=== PATIENT | female | born 1975 | race Caucasian/White ===

== ENCOUNTER 2016-10-04 09:23 | Inpatient (IN) | payer MEDICAID ==
[~2016-10-04] VITALS: Ht 162.6 cm; Wt 104.4 kg
[~2016-10-04 09:23] MED LIST: AMOX1TAB64 PO; DOCU-131 PO; DOXY100T PO; FLUT1BLS INH; FURO-93 PO; FURO40TA6 PO; GUAI600T31 PO; LEVO750T26 PO; METH4TAB2 PO; MULT-90 PO; POLY17PO5 PO; PRED-402 PO; PRED20TA PO; SIME80TA16 PO; SPIR25TA PO; TOBR5DRO49 OP
[2016-10-04] MEDS ORDERED: SODIUM CHLORIDE FLUSH 10ML SYR IVF ONE (10:30)
[2016-10-04] MEDS ORDERED: ONDANSETRON 2MG/ML, 2ML IVP ONE (10:30)
[2016-10-04] MEDS ORDERED: methylPREDNISolone SOD SUCC 125 MG/2 ML IVP ONE (10:30)
[2016-10-04] MEDS ORDERED: SODIUM CHLORIDE 0.9% 1,000ML IVBOLUS ONE (10:30)
[2016-10-04] MEDS ORDERED: ALBUTEROL SULFATE 2.5 MG/3 ML NPPB ONE (10:30)
[2016-10-04] MEDS ORDERED: methylPREDNISolone SOD SUCC 125 MG/2 ML ONE (10:30)
[2016-10-04] MEDS ORDERED: LORazepam 2 MG/ML, 1ML IVP ONE (10:30)
[2016-10-04] MEDS ORDERED: MORPHINE SULFATE 4 MG/ML, 1ML ONE ×2 (10:30→12:17)
[2016-10-04] MEDS ORDERED: ONDANSETRON 2MG/ML, 2ML ONE (10:31)
[2016-10-04] MEDS ORDERED: LORazepam 2 MG/ML, 1ML ONE (10:33)
[2016-10-04] MEDS: MORPHINE SULFATE 4 MG/ML, 1ML IVPush PRN ×2 (10:42→12:28)
[2016-10-04 11:20] LABS: HEMATOCRIT 39.3 % (34.6-47.8); HEMOGLOBIN 13.3 g/dL (11.7-16.4); WHITE BLOOD COUNT 7.5 x10^3/uL (3.4-10)
[2016-10-04 11:25] LABS: BLOOD UREA NITROGEN 6 mg/dL (7-18)
[2016-10-04 11:30] LABS: ASPARTATE AMINO TRANSFERASE 117 U/L (15-37)
[2016-10-04] MEDS ORDERED: SODIUM CHLORIDE 0.9%, 500ML IVBOLUS ONE (11:30)
[2016-10-04] MEDS ORDERED: ONDANSETRON 2MG/ML, 2ML IVPush PRN (13:30)
[2016-10-04] MEDS ORDERED: DOCUSATE 100 MG CAPSULE PO PRN (13:30)
[2016-10-04] MEDS ORDERED: METOCLOPRAMIDE 5 MG/ML, 2ML IVPush PRN (13:30)
[2016-10-04] MEDS ORDERED: BISACODYL 10 MG SUPP PR PRN (13:30)
[2016-10-04] MEDS ORDERED: LORazepam 1MG TABLET PO PRN ×4 (13:30)
[2016-10-04] MEDS ORDERED: ONDANSETRON ODT 4 MG PO PRN (13:30)
[2016-10-04] MEDS ORDERED: LABETALOL 5MG/ML, 20ML IVPush PRN (13:30)
[2016-10-04] MEDS ORDERED: LORazepam 2 MG/ML, 1ML IV PRN ×5 (13:30)
[2016-10-04] MEDS ORDERED: ENALAPRILAT 1.25 MG/ML, 2ML IVPush PRN (13:30)
[2016-10-04] MEDS ORDERED: LORazepam 0.5MG TABLET PO PRN (13:30)
[2016-10-04 13:53] VITALS: BP 101/64
[2016-10-04 13:54] VITALS: BP 101/64
[2016-10-04] MEDS: NICOTINE 14MG/24 HR PATCH.TD24 TD SCH (15:13)
[2016-10-04] MEDS: methylPREDNISolone SOD SUCC 125 MG/2 ML IVPush SCH ×2 (15:13→21:04)
[2016-10-04] MEDS: AZITHROMYCIN 500 MG in SODIUM CHLORIDE 0.9% 250 ML IV SCH (15:13)
[2016-10-04] MEDS: HEPARIN 5,000 UNITS/ML, 1ML SQ SCH (15:14)
[2016-10-04] MEDS ORDERED: ALBUTEROL/IPRATROPIUM 2.5MG/0.5MG, 3 ML ONE (16:15)
[2016-10-04] MEDS: SIMETHICONE 80 MG CHEW TAB PO SCH ×2 (16:17→21:03)
[2016-10-04] MEDS: THIAMINE 100 MG, MVI ADULT 10 ML, FOLIC ACID 1 MG in D5%-0.9% NACL 1,000 ML IV SCH (16:17)
[2016-10-04] MEDS: ALBUTEROL/IPRATROPIUM 2.5MG/0.5MG, 3 ML NPPB SCH ×2 (16:30→19:05)
[2016-10-04 20:05] VITALS: BP 110/76
[2016-10-05] MEDS: HEPARIN 5,000 UNITS/ML, 1ML SQ SCH ×3 (00:57→16:12)
[2016-10-05 01:46] VITALS: BP 98/62
[2016-10-05] MEDS: methylPREDNISolone SOD SUCC 125 MG/2 ML IVPush SCH ×2 (03:27→08:05)
[2016-10-05 05:42] LABS: ASPARTATE AMINO TRANSFERASE 62 U/L (15-37); BLOOD UREA NITROGEN 13 mg/dL (7-18)
[2016-10-05 05:48] LABS: HEMATOCRIT 37.9 % (34.6-47.8); HEMOGLOBIN 12.7 g/dL (11.7-16.4); WHITE BLOOD COUNT 7.5 x10^3/uL (3.4-10)
[2016-10-05 07:04] VITALS: BP 111/73
[2016-10-05] MEDS: ALBUTEROL/IPRATROPIUM 2.5MG/0.5MG, 3 ML NPPB SCH ×4 (07:45→19:40)
[2016-10-05] MEDS: MULTIVITAMIN 1 TABLET PO SCH (08:05)
[2016-10-05] MEDS: SPIRONOLACTONE 25 MG TABLET PO SCH (08:05)
[2016-10-05] MEDS: SIMETHICONE 80 MG CHEW TAB PO SCH ×4 (08:05→21:00)
[2016-10-05] MEDS: FLUTICASONE/VILANTEROL 200-25MCG/INH INH SCH (10:56)
[2016-10-05] MEDS ORDERED: POTASSIUM PHOSPHATE 22 MEQ in SODIUM CHLORIDE 0.9% 500 ML IV ONE (13:00)
[2016-10-05 14:06] VITALS: BP 114/67
[2016-10-05] MEDS: AZITHROMYCIN 500 MG in SODIUM CHLORIDE 0.9% 250 ML IV SCH (15:18)
[2016-10-05] MEDS: NICOTINE 14MG/24 HR PATCH.TD24 TD SCH (16:11)
[2016-10-05] MEDS: THIAMINE 100 MG, MVI ADULT 10 ML, FOLIC ACID 1 MG in D5%-0.9% NACL 1,000 ML IV SCH (17:07)
[2016-10-05] MEDS ORDERED: DOCUSATE 100 MG CAPSULE ONE (17:31)
[2016-10-05 18:51] VITALS: BP 115/71
[2016-10-06] MEDS: HEPARIN 5,000 UNITS/ML, 1ML SQ SCH ×2 (03:17→07:48)
[2016-10-06 03:45] VITALS: BP 129/90
[2016-10-06 05:45] LABS: ASPARTATE AMINO TRANSFERASE 42 U/L (15-37); BLOOD UREA NITROGEN 9 mg/dL (7-18)
[2016-10-06 06:41] VITALS: BP 117/73
[2016-10-06] MEDS: ALBUTEROL/IPRATROPIUM 2.5MG/0.5MG, 3 ML NPPB SCH ×3 (06:50→14:00)
[2016-10-06] MEDS: MULTIVITAMIN 1 TABLET PO SCH (07:48)
[2016-10-06] MEDS: SIMETHICONE 80 MG CHEW TAB PO SCH ×2 (07:48→12:30)
[2016-10-06] MEDS: SPIRONOLACTONE 25 MG TABLET PO SCH (07:48)
[2016-10-06] MEDS: FLUTICASONE/VILANTEROL 200-25MCG/INH INH SCH (07:48)
[2016-10-06] MEDS ORDERED: PRED10TA PO (09:51)
[2016-10-06] MEDS ORDERED: AZIT250T PO (09:51)
[2016-10-06] MEDS ORDERED: FLUT1BLS INH (09:51)
[2016-10-06] MEDS ORDERED: ALBU6.7H INH (09:51)
[2016-10-06 12:28] VITALS: BP 118/75
== END 2016-10-06 15:49 | disposition home or self-care (01) | DRG 190 ==
LOC: ED 10:22 → EDIP 12:25 → 3NW 14:22 → 4WST 19:03 → DCLOUNGE 10-06 15:30
PROVIDERS: ADMIT Internal Medicine; ATTEND Internal Medicine
DX: J44.0 Chronic obstructive pulmonary disease with (acute) lower respiratory infection (principal); E43 Unspecified severe protein-calorie malnutrition; D69.59 Other secondary thrombocytopenia; K70.30 Alcoholic cirrhosis of liver without ascites; K70.10 Alcoholic hepatitis without ascites; E87.1 Hypo-osmolality and hyponatremia; E83.39 Other disorders of phosphorus metabolism; F20.9 Schizophrenia, unspecified; E86.0 Dehydration; J44.1 Chronic obstructive pulmonary disease with (acute) exacerbation; F10.10 Alcohol abuse, uncomplicated; F32.9 Major depressive disorder, single episode, unspecified; J20.9 Acute bronchitis, unspecified; Z59.0 Homelessness; Z80.3 Family history of malignant neoplasm of breast; Z82.49 Family history of ischemic heart disease and other diseases of the circulatory system; Z83.3 Family history of diabetes mellitus; Z91.19 Patient's noncompliance with other medical treatment and regimen; Z68.39 Body mass index [BMI] 39.0-39.9, adult
CPT/HCPCS: 36415; 71010; 76700; 80053; 83036; 83605; 83690; 83735; 84100; 85025; 85610; 87040; 93005; 94640; 96361; 96374; 96375; 96376; J0456; J1644; J2405; J3411; J7042; J7620; J2060; J2930; J7030; J7040; J7050; J7512

== ENCOUNTER 2017-11-14 03:33 | Emergency (ER) | payer MEDICAID ==
[~2017-11-14] VITALS: Ht 162.6 cm; Wt 104.2 kg
[~2017-11-14 03:33] MED LIST changes: +ALBU6.7H INH; +AZIT250T PO; +PRED10TA PO
[2017-11-14] MEDS ORDERED: LORazepam 1MG TABLET PO ONE (04:00)
[2017-11-14] MEDS ORDERED: KETOROLAC 30 MG/1 ML IM ONE (04:00)
[2017-11-14] MEDS ORDERED: LORazepam 1MG TABLET ONE (04:01)
[2017-11-14] MEDS ORDERED: KETOROLAC 30 MG/1 ML ONE (04:01)
[2017-11-14 04:06] VITALS: BP 132/79
[2017-11-14 04:36] LABS: ALANINE AMINOTRANSFERASE 174 U/L (12-78); ALBUMIN 2.8 g/dL (3.4-5.0); ANION GAP 8 mmol/L (5-15); CALCIUM 8.2 mg/dL (8.5-10.1); CHLORIDE 106 mmol/L (98-107); CREATININE 0.47 mg/dL (0.55-1.02)
[2017-11-14 04:41] LABS: ALKALINE PHOSPHATASE 387 U/L (45-117); BILIRUBIN,TOTAL 2.3 mg/dL (0.2-1.0); TOTAL PROTEIN 8.4 g/dL (6.4-8.2)
[2017-11-14 04:43] LABS: BASOPHILS # (AUTO) 0.12 x10^3/uL (0-0.1); BASOPHILS % (AUTO) 1 % (0-1); EOSINOPHILS # (AUTO) 0.15 x10^3/uL (0-0.4); EOSINOPHILS % (AUTO) 2 % (1-7); LYMPHOCYTES # (AUTO) 2.47 x10^3/uL (1-3.4); LYMPHOCYTES % (AUTO) 27 % (22-44); MD NO; MEAN CORPUSCULAR HEMOGLOBIN 34.8 pg (27.0-34.8); MEAN CORPUSCULAR VOLUME 102.4 fL (80-100); MEAN PLATELET VOLUME 8.5 fL (7.4-10.4); MONOCYTES # (AUTO) 0.74 x10^3/uL (0.2-0.8); MONOCYTES % (AUTO) 8 % (2-9); NEUTROPHILS # (AUTO) 5.59 x10^3/uL (1.8-6.8); NEUTROPHILS % (AUTO) 62 % (42-75); PLATELET COUNT 116 x10^3/uL (130-400); RED BLOOD COUNT 4.17 x10^6/uL (3.82-5.3); RED CELL DISTRIBUTION WIDTH 14.6 % (9.6-15.2)
== END 2017-11-14 04:57 | disposition left against medical advice (07) ==
LOC: ED 04:51
DX: M54.5 Low back pain (principal); J45.909 Unspecified asthma, uncomplicated; F32.9 Major depressive disorder, single episode, unspecified; F20.9 Schizophrenia, unspecified; F41.1 Generalized anxiety disorder
CPT/HCPCS: 36415; 72110; 80053; 80307; 83690; 84703; 85025; 96372; 99285; J1885

== ENCOUNTER 2017-11-14 06:36 | Emergency (ER) | payer MEDICAID ==
[~2017-11-14] VITALS: Ht 177.8 cm; Wt 98.0 kg
[2017-11-14] MEDS ORDERED: ONDANSETRON ODT 4 MG ONE (07:21)
[2017-11-14] MEDS ORDERED: DIAZEPAM 5 MG TABLET ONE (07:22)
[2017-11-14] MEDS ORDERED: DIAZEPAM 5 MG TABLET PO ONE (07:30)
[2017-11-14] MEDS ORDERED: ONDANSETRON ODT 4 MG PO ONE (07:30)
[2017-11-14 08:18] LABS: MICROSCOPIC INDICATED
[2017-11-14 08:19] LABS: CULTURE INDICATED? YES; HCG UR SG 1.025 (1.003-1.030)
[2017-11-14 08:32] VITALS: BP 161/111
== END 2017-11-14 09:40 | disposition home or self-care (01) ==
LOC: ED 08:50
DX: N30.01 Acute cystitis with hematuria (principal); M54.5 Low back pain; K70.30 Alcoholic cirrhosis of liver without ascites; J44.9 Chronic obstructive pulmonary disease, unspecified; F32.9 Major depressive disorder, single episode, unspecified; F41.1 Generalized anxiety disorder; F20.9 Schizophrenia, unspecified
CPT/HCPCS: 74176; 81001; 81025; 87077; 87086; 87147; 87186; 99285; Q0162

== ENCOUNTER 2017-12-22 20:16 | Emergency (ER) | payer MEDICAID ==
[~2017-12-22] VITALS: Ht 162.6 cm; Wt 103.4 kg
[2017-12-22] MEDS ORDERED: ALBUTEROL/IPRATROPIUM 2.5MG/0.5MG, 3 ML NPPB ONE (20:30)
[2017-12-22] MEDS ORDERED: ALBUTEROL/IPRATROPIUM 2.5MG/0.5MG, 3 ML ONE ×2 (20:34→21:31)
[2017-12-22] MEDS ORDERED: KETOROLAC 30 MG/1 ML IM ONE (22:00)
[2017-12-22 23:14] VITALS: BP 85/40
== END 2017-12-22 23:31 | disposition home or self-care (01) ==
LOC: ED 22:03
DX: G89.11 Acute pain due to trauma (principal); M25.571 Pain in right ankle and joints of right foot; J44.1 Chronic obstructive pulmonary disease with (acute) exacerbation; F15.10 Other stimulant abuse, uncomplicated; F17.200 Nicotine dependence, unspecified, uncomplicated
CPT/HCPCS: 71045; 73590; 73610; 93005; 94640; 99284; J7620

== ENCOUNTER 2018-09-13 02:23 | Emergency (ER) | payer MEDICAID ==
[~2018-09-13] VITALS: Ht 162.6 cm; Wt 110.0 kg
[~2018-09-13 02:23] MED LIST changes: -ALBU6.7H INH; +ALBU6.7H8 INH
--- NOTE | 2018-09-13 02:35 | NUR ---
Pt BIB EMS from - [address]/ c/o abd pain generalized x "several days", worse yesterday am after lifting "heavy suitcase", states "flet a pop and something dropped", points to abdomen ans states "it seems to be bulging out more", last BM yesterday and normal, mild nausea, denies emesis. Tender to palpation, generalized distension noted. MD at bedside for assessment. vitals stable.
[2018-09-13] MEDS ORDERED: MORPHINE SULFATE 4 MG/ML, 1ML ONE (02:49)
[2018-09-13] MEDS ORDERED: ONDANSETRON 2MG/ML, 2ML ONE (02:49)
[2018-09-13] MEDS ORDERED: ONDANSETRON 2MG/ML, 2ML IVPush ONE (03:00)
[2018-09-13] MEDS ORDERED: MORPHINE SULFATE 4 MG/ML, 1ML IVPush PRN (03:00)
--- NOTE | 2018-09-13 03:00 | NUR ---
PIV placed, labs drawn. UA collected. Medicated for pain/nausea per MD orders, vitals stable, will monitor for effect.
[2018-09-13 03:17] LABS: ALANINE AMINOTRANSFERASE 95 U/L (12-78); ALBUMIN 2.8 g/dL (3.4-5.0); ANION GAP 7 mmol/L (5-15); CHLORIDE 108 mmol/L (98-107); CREATININE 0.44 mg/dL (0.55-1.02)
[2018-09-13 03:21] LABS: BASOPHILS # (AUTO) 0.01 x10^3/uL (0-0.1); BASOPHILS % (AUTO) 0 % (0-1); EOSINOPHILS # (AUTO) 0.16 x10^3/uL (0-0.4); EOSINOPHILS % (AUTO) 2 % (1-7); LYMPHOCYTES % (AUTO) 20 % (22-44); MD SCAN; MEAN CORPUSCULAR HGB CONC 33.4 g/dL (32.4-35.8); MEAN CORPUSCULAR VOLUME 104.7 fL (80-100); MEAN PLATELET VOLUME 7.9 fL (7.4-10.4); MONOCYTES # (AUTO) 0.47 x10^3/uL (0.2-0.8); MONOCYTES % (AUTO) 7 % (2-9); NEUTROPHILS # (AUTO) 4.72 x10^3/uL (1.8-6.8); NEUTROPHILS % (AUTO) 71 % (42-75); PLATELET COUNT 94 x10^3/uL (130-400); RED BLOOD COUNT 3.77 x10^6/uL (3.82-5.3); RED CELL DISTRIBUTION WIDTH 15.2 % (9.6-15.2)
[2018-09-13 03:22] LABS: ALKALINE PHOSPHATASE 377 U/L (45-117); BILIRUBIN,TOTAL 1.6 mg/dL (0.2-1.0); TOTAL PROTEIN 7.4 g/dL (6.4-8.2)
--- NOTE | 2018-09-13 03:30 | NUR ---
Pt resting on gurney w/ eyes closed, respirations even and unlabored, no s/sx of distress noted, vitals stable, waiting for results.
[2018-09-13] MEDS ORDERED: OMNIPAQUE 350 MG/ML, 100ML BOTTLE ONE (03:42)
[2018-09-13 04:29] VITALS: BP 122/65
--- NOTE | 2018-09-13 04:30 | NUR ---
Pt ambulates w/ steady gait to BR, voids w/o difficulty, vitals stable, pain /10.
--- NOTE | 2018-09-13 05:40 | NUR ---
Pt stable for discharge home. Abd binder placed, return demonstrates effective application, exitcare education provided. Verbalizes understanding. vitals stable. ambulates w/ steady gait to discharge desk with suitcase.
[2018-09-13 05:51] LABS: CULTURE INDICATED? YES; MICROSCOPIC INDICATED
== END 2018-09-13 05:53 | disposition home or self-care (01) ==
LOC: ED 05:48
DX: K42.9 Umbilical hernia without obstruction or gangrene (principal); F17.200 Nicotine dependence, unspecified, uncomplicated; J44.9 Chronic obstructive pulmonary disease, unspecified; Z86.19 Personal history of other infectious and parasitic diseases
CPT/HCPCS: 36415; 74177; 80053; 81001; 83605; 83690; 84703; 85025; 87077; 87086; 87186; 96374; 96375; 99284; J2270; J2405; Q9967

== ENCOUNTER 2018-09-24 22:02 | Emergency (ER) | payer MEDICAID ==
[~2018-09-24] VITALS: Ht 162.6 cm; Wt 106.7 kg
[2018-09-25 00:24] VITALS: BP 138/78
== END 2018-09-25 00:27 | disposition home or self-care (01) ==
LOC: ED 22:59
DX: F10.229 Alcohol dependence with intoxication, unspecified (principal); K42.9 Umbilical hernia without obstruction or gangrene; J44.9 Chronic obstructive pulmonary disease, unspecified; F20.9 Schizophrenia, unspecified; F32.9 Major depressive disorder, single episode, unspecified
CPT/HCPCS: 36415; 80053; 80307; 81001; 83690; 84703; 85025; 87077; 87086; 87186; 99283

== ENCOUNTER 2019-01-08 17:02 | Inpatient (IN) | payer MEDICAID ==
[~2019-01-08] VITALS: Ht 162.6 cm; Wt 101.2 kg
--- NOTE | 2019-01-08 17:23 | NUR ---
PT HERE TODAY FOR COUGH, DIZZINESS, N/V. 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 STATES SHE IS TRYING TO QUIT ALCOHOL. STATES SHE HAD "ONLY ONE BEER TODAY." PT RESTING ON [facility]. NADN. SALINAS.
--- NOTE | 2019-01-08 18:05 | NUR ---
PIV STARTED PER MD ORDER. BLOOD DRAWN.
[2019-01-08] MEDS ORDERED: methylPREDNISolone SOD SUCC 125 MG/2 ML ONE (18:12)
--- NOTE | 2019-01-08 18:18 | NUR ---
PT MEDICATED PER EMAR. RESTING ON GURNEY. VSS. RADIOLOGY JUST FINISHED AT BEDSIDE.
[2019-01-08] MEDS ORDERED: ALBUTEROL SULFATE 2.5 MG/3 ML ONE (18:23)
[2019-01-08] MEDS ORDERED: ALBUTEROL/IPRATROPIUM 2.5MG/0.5MG, 3 ML ONE (18:23)
[2019-01-08 18:27] LABS: ALBUMIN 2.8 g/dL (3.4-5.0); ANION GAP 7 mmol/L (5-15); CALCIUM 7.9 mg/dL (8.5-10.1); CHLORIDE 96 mmol/L (98-107); CREATININE 0.47 mg/dL (0.55-1.02)
[2019-01-08] MEDS ORDERED: ALBUTEROL/IPRATROPIUM 2.5MG/0.5MG, 3 ML NEB ONE (18:30)
[2019-01-08] MEDS ORDERED: SODIUM CHLORIDE FLUSH 10ML SYR IVF ONE (18:30)
[2019-01-08] MEDS ORDERED: SODIUM CHLORIDE 0.9% 1,000ML IVBOLUS ONE (18:30)
[2019-01-08] MEDS ORDERED: methylPREDNISolone SOD SUCC 125 MG/2 ML IV ONE (18:30)
[2019-01-08] MEDS ORDERED: ALBUTEROL SULFATE 2.5MG/0.5ML NPPB ONE (18:30)
--- NOTE | 2019-01-08 18:36 | NUR ---
RT AT BEDSIDE.
[2019-01-08 18:40] LABS: RAPID INFLUENZA A POSITIVE (Negative); RAPID INFLUENZA B Negative (Negative)
--- NOTE | 2019-01-08 18:50 | NUR ---
REPORT GIVEN TO TALYA CARIAS.
[2019-01-08 18:53] LABS: BASOPHILS # (AUTO) 0.02 x10^3/uL (0-0.1); BASOPHILS % (AUTO) 0 % (0-1); EOSINOPHILS # (AUTO) 0.01 x10^3/uL (0-0.4); EOSINOPHILS % (AUTO) 0 % (1-7); LYMPHOCYTES # (AUTO) 0.64 x10^3/uL (1-3.4); LYMPHOCYTES % (AUTO) 13 % (22-44); MD SCAN; MEAN CORPUSCULAR HEMOGLOBIN 35.4 pg (27.0-34.8); MEAN CORPUSCULAR HGB CONC 34.3 g/dL (32.4-35.8); MEAN CORPUSCULAR VOLUME 103.2 fL (80-100); MEAN PLATELET VOLUME 8.5 fL (7.4-10.4); MONOCYTES # (AUTO) 0.59 x10^3/uL (0.2-0.8); MONOCYTES % (AUTO) 12 % (2-9); NEUTROPHILS # (AUTO) 3.75 x10^3/uL (1.8-6.8); NEUTROPHILS % (AUTO) 75 % (42-75); PLATELET COUNT 51 x10^3/uL (130-400); RED BLOOD COUNT 3.81 x10^6/uL (3.82-5.3); RED CELL DISTRIBUTION WIDTH 15.3 % (9.6-15.2)
[2019-01-08] MEDS ORDERED: KETOROLAC 30 MG/1 ML ONE (18:54)
[2019-01-08] MEDS ORDERED: ACETAMINOPHEN 325 MG TABLET ONE (18:55)
[2019-01-08] MEDS ORDERED: KETOROLAC 30 MG/1 ML IVPush ONE (19:00)
[2019-01-08] MEDS ORDERED: ACETAMINOPHEN 325 MG TABLET PO ONE (19:00)
[2019-01-08] MEDS ORDERED: CALCIUM CARBONATE 500 MG TABLET PO SCH (19:30)
[2019-01-08] MEDS ORDERED: POTASSIUM CHLORIDE 20 MEQ TAB.ER.PRT PO ONE (19:30)
[2019-01-08] MEDS ORDERED: POTASSIUM CHLORIDE 20 MEQ TAB.ER.PRT ONE (19:44)
--- NOTE | 2019-01-08 19:55 | NUR ---
MEDS PER APR. VSS. PT TO BE ADMITTED, DROPLET PRECS FOR FLU A IN PLACE. RESTING IN BED, CALL COLES IN REACH .
--- NOTE | 2019-01-08 20:15 | NUR ---
report to Anastacia BABIN room 340
[2019-01-08] MEDS ORDERED: ACETAMINOPHEN 325 MG TABLET PO PRN (22:00)
[2019-01-08] MEDS ORDERED: LORazepam 0.5MG TABLET PO PRN (22:00)
[2019-01-08] MEDS ORDERED: LABETALOL 5MG/ML, 20ML IV PRN (22:00)
[2019-01-08] MEDS ORDERED: DOCUSATE 100 MG CAPSULE PO PRN (22:00)
[2019-01-08] MEDS ORDERED: ALUMINUM/MAG/SIMETHICONE 30 ML UDC PO PRN (22:00)
[2019-01-08] MEDS ORDERED: LORazepam 1MG TABLET PO PRN ×4 (22:00)
[2019-01-08] MEDS ORDERED: LIDODERM 5% PATCH TD PRN (22:00)
[2019-01-08] MEDS ORDERED: ONDANSETRON 2MG/ML, 2ML IV PRN (22:00)
[2019-01-08 22:24] VITALS: BP 115/66
[2019-01-08] MEDS ORDERED: CALCIUM CARBONATE 500 MG TABLET PO ONE (22:30)
[2019-01-08] MEDS: OSELTAMIVIR 75 MG CAPSULE PO SCH (22:58)
[2019-01-08] MEDS: BENZONATATE 100 MG CAPSULE PO SCH (22:58)
[2019-01-08] MEDS: POTASSIUM CHLORIDE 10 MEQ in SODIUM CHLORIDE 0.9% 1,000 ML IV SCH (23:00)
[2019-01-09 00:36] VITALS: BP 136/90
[2019-01-09] MEDS: ENOXAPARIN 40 MG/0.4 ML SQ SCH (04:54)
[2019-01-09] MEDS: KETOROLAC 30 MG/1 ML IV PRN ×2 (05:12→15:44)
[2019-01-09] MEDS: POTASSIUM CHLORIDE 10 MEQ in SODIUM CHLORIDE 0.9% 1,000 ML IV SCH ×3 (05:20→19:20)
[2019-01-09 05:27] LABS: ANION GAP 2 mmol/L (5-15); CALCIUM 8.6 mg/dL (8.5-10.1); CHLORIDE 106 mmol/L (98-107); CREATININE 0.49 mg/dL (0.55-1.02)
[2019-01-09 05:31] LABS: MEAN CORPUSCULAR HEMOGLOBIN 35.1 pg (27.0-34.8); MEAN CORPUSCULAR HGB CONC 33.7 g/dL (32.4-35.8); RED BLOOD COUNT 4.08 x10^6/uL (3.82-5.3); RED CELL DISTRIBUTION WIDTH 15.7 % (9.6-15.2)
[2019-01-09 05:54] LABS: BASOPHILS # (AUTO) 0.01 x10^3/uL (0-0.1); BASOPHILS % (AUTO) 0 % (0-1); EOSINOPHILS # (AUTO) 0.01 x10^3/uL (0-0.4); EOSINOPHILS % (AUTO) 0 % (1-7); LYMPHOCYTES # (AUTO) 0.39 x10^3/uL (1-3.4); LYMPHOCYTES % (AUTO) 15 % (22-44); MD SCAN; MEAN PLATELET VOLUME 8.3 fL (7.4-10.4); MONOCYTES # (AUTO) 0.09 x10^3/uL (0.2-0.8); MONOCYTES % (AUTO) 3 % (2-9); NEUTROPHILS # (AUTO) 2.11 x10^3/uL (1.8-6.8); NEUTROPHILS % (AUTO) 81 % (42-75); PLATELET COUNT 54 x10^3/uL (130-400)
[2019-01-09 07:52] VITALS: BP 132/82
[2019-01-09] MEDS: FOLIC ACID 1 MG TABLET PO SCH (08:27)
[2019-01-09] MEDS: MULTIVITAMINS/MINERALS TABLET PO SCH (08:27)
[2019-01-09] MEDS: BENZONATATE 100 MG CAPSULE PO SCH ×3 (08:27→21:00)
[2019-01-09] MEDS: THIAMINE 100MG TABLET PO SCH (08:27)
[2019-01-09] MEDS: OSELTAMIVIR 75 MG CAPSULE PO SCH ×2 (08:27→21:00)
[2019-01-09] MEDS: LIDODERM REMOVE PATCH NOTE XX SCH (10:30)
[2019-01-09] MEDS: ALBUTEROL/IPRATROPIUM 2.5MG/0.5MG, 3 ML NPPB PRN (11:50)
[2019-01-09 14:05] VITALS: BP 122/79
[2019-01-09 19:41] VITALS: BP 137/82
[2019-01-09] MEDS: DIPHENHYDRAMINE 50 MG CAPSULE PO PRN (21:00)
[2019-01-10 01:10] VITALS: BP 121/72
[2019-01-10] MEDS: POTASSIUM CHLORIDE 10 MEQ in SODIUM CHLORIDE 0.9% 1,000 ML IV SCH ×2 (02:13→12:15)
[2019-01-10] MEDS: ENOXAPARIN 40 MG/0.4 ML SQ SCH (04:27)
[2019-01-10 05:58] LABS: CHLORIDE 107 mmol/L (98-107)
[2019-01-10 06:10] LABS: ALANINE AMINOTRANSFERASE 92 U/L (12-78); ALBUMIN 2.6 g/dL (3.4-5.0); ALKALINE PHOSPHATASE 316 U/L (45-117); ANION GAP 4 mmol/L (5-15); BILIRUBIN,TOTAL 2.1 mg/dL (0.2-1.0); CALCIUM 7.9 mg/dL (8.5-10.1); CREATININE 0.47 mg/dL (0.55-1.02); TOTAL PROTEIN 7.7 g/dL (6.4-8.2)
[2019-01-10 06:48] LABS: MEAN CORPUSCULAR HEMOGLOBIN 35.1 pg (27.0-34.8); MEAN CORPUSCULAR HGB CONC 33.2 g/dL (32.4-35.8); MEAN CORPUSCULAR VOLUME 105.5 fL (80-100); MEAN PLATELET VOLUME 8.1 fL (7.4-10.4); RED BLOOD COUNT 3.97 x10^6/uL (3.82-5.3); RED CELL DISTRIBUTION WIDTH 15.9 % (9.6-15.2)
[2019-01-10 06:50] LABS: BASOPHILS # (AUTO) 0.01 x10^3/uL (0-0.1); BASOPHILS % (AUTO) 0 % (0-1); EOSINOPHILS % (AUTO) 0 % (1-7); LYMPHOCYTES % (AUTO) 12 % (22-44); MD SCAN; MONOCYTES # (AUTO) 0.43 x10^3/uL (0.2-0.8); MONOCYTES % (AUTO) 7 % (2-9); NEUTROPHILS # (AUTO) 5.28 x10^3/uL (1.8-6.8); NEUTROPHILS % (AUTO) 81 % (42-75)
[2019-01-10 06:51] LABS: PLATELET COUNT 49 x10^3/uL (130-400)
[2019-01-10 07:48] VITALS: BP 141/92
[2019-01-10] MEDS: FOLIC ACID 1 MG TABLET PO SCH (08:35)
[2019-01-10] MEDS: THIAMINE 100MG TABLET PO SCH (08:35)
[2019-01-10] MEDS: OSELTAMIVIR 75 MG CAPSULE PO SCH ×2 (08:35→21:09)
[2019-01-10] MEDS: MULTIVITAMINS/MINERALS TABLET PO SCH (08:36)
[2019-01-10] MEDS: LIDODERM REMOVE PATCH NOTE XX SCH (10:30)
[2019-01-10 12:42] VITALS: BP 138/86
[2019-01-10] MEDS ORDERED: ENOXAPARIN 40 MG/0.4 ML SQ SCH (16:00)
[2019-01-10] MEDS: LACTATED RINGERS 1,000 ML IV SCH (16:44)
[2019-01-10] MEDS: ALBUTEROL/IPRATROPIUM 2.5MG/0.5MG, 3 ML NPPB PRN (17:12)
[2019-01-10 19:31] VITALS: BP 142/92
[2019-01-10] MEDS: DIPHENHYDRAMINE 50 MG CAPSULE PO PRN (21:09)
[2019-01-11] MEDS: LACTATED RINGERS 1,000 ML IV SCH ×2 (00:03→09:02)
[2019-01-11 01:06] VITALS: BP 134/90
[2019-01-11 07:24] LABS: ALANINE AMINOTRANSFERASE 87 U/L (12-78); ALBUMIN 2.4 g/dL (3.4-5.0); ANION GAP 5 mmol/L (5-15); CALCIUM 7.8 mg/dL (8.5-10.1); CHLORIDE 100 mmol/L (98-107); CREATININE 0.52 mg/dL (0.55-1.02)
[2019-01-11 07:26] LABS: ALKALINE PHOSPHATASE 272 U/L (45-117); BILIRUBIN,TOTAL 2.4 mg/dL (0.2-1.0); TOTAL PROTEIN 7.5 g/dL (6.4-8.2)
[2019-01-11 07:28] VITALS: BP 127/76
[2019-01-11 07:32] LABS: MEAN CORPUSCULAR HEMOGLOBIN 34.9 pg (27.0-34.8); MEAN CORPUSCULAR HGB CONC 33.8 g/dL (32.4-35.8); MEAN CORPUSCULAR VOLUME 103.4 fL (80-100); RED BLOOD COUNT 4.29 x10^6/uL (3.82-5.3)
[2019-01-11 07:44] LABS: BASOPHILS % (AUTO) 0 % (0-1); EOSINOPHILS # (AUTO) 0.01 x10^3/uL (0-0.4); EOSINOPHILS % (AUTO) 0 % (1-7); LYMPHOCYTES # (AUTO) 1.05 x10^3/uL (1-3.4); LYMPHOCYTES % (AUTO) 21 % (22-44); MD SCAN; MEAN PLATELET VOLUME 8.4 fL (7.4-10.4); MONOCYTES # (AUTO) 0.39 x10^3/uL (0.2-0.8); MONOCYTES % (AUTO) 8 % (2-9); NEUTROPHILS # (AUTO) 3.61 x10^3/uL (1.8-6.8); NEUTROPHILS % (AUTO) 71 % (42-75)
[2019-01-11 07:47] LABS: PLATELET COUNT 46 x10^3/uL (130-400)
[2019-01-11] MEDS ORDERED: FOLI-17 PO (07:54)
[2019-01-11] MEDS ORDERED: OSEL75CA14 PO (07:54)
[2019-01-11] MEDS ORDERED: THIA100T67 PO (07:54)
[2019-01-11] MEDS ORDERED: PRED10TA PO (07:57)
[2019-01-11] MEDS: FOLIC ACID 1 MG TABLET PO SCH (09:01)
[2019-01-11] MEDS: OSELTAMIVIR 75 MG CAPSULE PO SCH (09:01)
[2019-01-11] MEDS: THIAMINE 100MG TABLET PO SCH (09:01)
[2019-01-11] MEDS: MULTIVITAMINS/MINERALS TABLET PO SCH (09:01)
[2019-01-11] MEDS: LIDODERM REMOVE PATCH NOTE XX SCH (09:05)
[2019-01-11 15:25] VITALS: BP 144/87
== END 2019-01-11 17:37 | disposition home or self-care (01) | DRG 720 ==
LOC: ED 19:39 → EDIP 20:11 → 3N 21:45
PROVIDERS: ADMIT Internal Medicine; ATTEND Hospitalist
DX: A41.89 Other specified sepsis (principal); D69.6 Thrombocytopenia, unspecified; E83.51 Hypocalcemia; E87.1 Hypo-osmolality and hyponatremia; F20.9 Schizophrenia, unspecified; K70.30 Alcoholic cirrhosis of liver without ascites; K70.9 Alcoholic liver disease, unspecified; B19.20 Unspecified viral hepatitis C without hepatic coma; D75.89 Other specified diseases of blood and blood-forming organs; E87.6 Hypokalemia; F15.10 Other stimulant abuse, uncomplicated; F17.210 Nicotine dependence, cigarettes, uncomplicated; F31.9 Bipolar disorder, unspecified; F41.1 Generalized anxiety disorder; J10.1 Influenza due to other identified influenza virus with other respiratory manifestations; J44.1 Chronic obstructive pulmonary disease with (acute) exacerbation; K62.5 Hemorrhage of anus and rectum; Z80.3 Family history of malignant neoplasm of breast; Z82.49 Family history of ischemic heart disease and other diseases of the circulatory system; Z83.3 Family history of diabetes mellitus; Z91.19 Patient's noncompliance with other medical treatment and regimen
CPT/HCPCS: 36415; 71045; 76700; 80048; 80053; 82040; 82607; 83735; 84100; 84443; 84702; 85025; 87040; 87400; 93005; 94640; G0378; J1650; J1885; J3480; J7611; J7620; J2930; J7030; J7120

== ENCOUNTER 2019-01-17 20:38 | Inpatient (IN) | payer MEDICAID ==
[~2019-01-17] VITALS: Ht 162.6 cm; Wt 98.4 kg
[~2019-01-17 20:38] MED LIST changes: +FOLI-17 PO; +OSEL75CA14 PO; +THIA100T67 PO
[2019-01-17] MEDS ORDERED: SODIUM CHLORIDE FLUSH 10ML SYR IVF ONE (21:00)
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
--- NOTE | 2019-01-17 21:27 | NUR ---
PT IN NAD VSS
[2019-01-17 21:43] LABS: BASOPHILS # (AUTO) 0.02 x10^3/uL (0-0.1); BASOPHILS % (AUTO) 0 % (0-1); EOSINOPHILS # (AUTO) 0.04 x10^3/uL (0-0.4); EOSINOPHILS % (AUTO) 0 % (1-7); LYMPHOCYTES # (AUTO) 1.13 x10^3/uL (1-3.4); LYMPHOCYTES % (AUTO) 14 % (22-44); MD NO; MEAN CORPUSCULAR HEMOGLOBIN 34.9 pg (27.0-34.8); MEAN CORPUSCULAR HGB CONC 33.2 g/dL (32.4-35.8); MEAN CORPUSCULAR VOLUME 105.2 fL (80-100); MEAN PLATELET VOLUME 8.2 fL (7.4-10.4); MONOCYTES # (AUTO) 0.62 x10^3/uL (0.2-0.8); MONOCYTES % (AUTO) 8 % (2-9); NEUTROPHILS % (AUTO) 78 % (42-75); PLATELET COUNT 115 x10^3/uL (130-400); RED BLOOD COUNT 3.56 x10^6/uL (3.82-5.3); RED CELL DISTRIBUTION WIDTH 15.6 % (9.6-15.2)
[2019-01-17 21:49] LABS: ALANINE AMINOTRANSFERASE 96 U/L (12-78); ALBUMIN 2.4 g/dL (3.4-5.0); CALCIUM 7.8 mg/dL (8.5-10.1); CREATININE 0.46 mg/dL (0.55-1.02)
[2019-01-17 21:51] LABS: ALKALINE PHOSPHATASE 278 U/L (45-117); BILIRUBIN,TOTAL 3.4 mg/dL (0.2-1.0); TOTAL PROTEIN 7.6 g/dL (6.4-8.2)
[2019-01-17 21:57] LABS: ANION GAP 5 mmol/L (5-15); CHLORIDE 104 mmol/L (98-107)
[2019-01-17 22:04] LABS: INTERNATIONAL NORMALIZED RATIO 1.25 (0.93-1.1)
[2019-01-17 22:33] LABS: AMPHETAMINE SCREEN, URINE Negative (Negative); BARBITURATE SCREEN, URINE Negative (Negative); BENZODIAZEPINE SCREEN, URINE Negative (Negative); CANNABINOID SCREEN, URINE Negative (Negative); COCAINE SCREEN, URINE Negative (Negative); METHADONE SCREEN, URINE Negative (Negative); OPIATE SCREEN, URINE Negative (Negative)
[2019-01-17] MEDS ORDERED: PANTOPRAZOLE 40 MG IV ONE (22:47)
[2019-01-17] MEDS ORDERED: PIPERACILLIN/TAZO/PMX 3.375GM 50 ML ONE (22:47)
[2019-01-17] MEDS ORDERED: CIPROFLOXACIN/PMX 400MG/200ML 200 ML ONE (22:47)
[2019-01-17] MEDS ORDERED: CIPROFLOXACIN/PMX 400MG/200ML 200 ML IV ONE (23:00)
[2019-01-17] MEDS ORDERED: PIPERACILLIN/TAZO/PMX 3.375GM 50 ML IV ONE (23:00)
[2019-01-17] MEDS ORDERED: PANTOPRAZOLE 40 MG IV IVPush ONE (23:00)
[2019-01-17] MEDS ORDERED: SODIUM CHLORIDE 0.9% 1,000 ML IV ONE (23:30)
--- NOTE | 2019-01-17 23:34 | NUR ---
PT TO CT AWAITING ADMIT
[2019-01-17] MEDS ORDERED: OMNIPAQUE 350 MG/ML, 100ML BOTTLE ONE (23:38)
--- NOTE | 2019-01-17 23:43 | NUR ---
REPORT TO XIOMARA PT TO FLOOR WITH TECH
[2019-01-18] MEDS ORDERED: morphine SULFATE 10 MG/ML, 1ML IVPush PRN
[2019-01-18] MEDS ORDERED: PROMETHAZINE 25 MG/ML, 1ML IM PRN
[2019-01-18] MEDS ORDERED: ONDANSETRON 2MG/ML, 2ML IVPush PRN
[2019-01-18] MEDS: methylPREDNISolone SOD SUCC 125 MG/2 ML IVPush SCH ×4 (00:33→17:27)
[2019-01-18 00:36] VITALS: BP 115/72
[2019-01-18] MEDS: POTASSIUM CHLORIDE 20 MEQ, MAGNESIUM SULFATE 2 GM, THIAMINE 200 MG, MVI ADULT 10 ML, FO... IV SCH (01:12)
[2019-01-18 05:06] LABS: BASOPHILS # (AUTO) 0.01 x10^3/uL (0-0.1); BASOPHILS % (AUTO) 0 % (0-1); EOSINOPHILS # (AUTO) 0.01 x10^3/uL (0-0.4); EOSINOPHILS % (AUTO) 0 % (1-7); LYMPHOCYTES # (AUTO) 0.64 x10^3/uL (1-3.4); LYMPHOCYTES % (AUTO) 8 % (22-44); MD NO; MEAN CORPUSCULAR HEMOGLOBIN 34.4 pg (27.0-34.8); MEAN CORPUSCULAR HGB CONC 33.3 g/dL (32.4-35.8); MEAN CORPUSCULAR VOLUME 103.4 fL (80-100); MEAN PLATELET VOLUME 8.1 fL (7.4-10.4); MONOCYTES % (AUTO) 1 % (2-9); NEUTROPHILS # (AUTO) 7.59 x10^3/uL (1.8-6.8); NEUTROPHILS % (AUTO) 91 % (42-75); PLATELET COUNT 107 x10^3/uL (130-400); RED BLOOD COUNT 3.62 x10^6/uL (3.82-5.3); RED CELL DISTRIBUTION WIDTH 15.5 % (9.6-15.2)
[2019-01-18 05:11] LABS: ALANINE AMINOTRANSFERASE 89 U/L (12-78); ALBUMIN 2.5 g/dL (3.4-5.0); ANION GAP 5 mmol/L (5-15); CALCIUM 7.9 mg/dL (8.5-10.1); CHLORIDE 109 mmol/L (98-107); CREATININE 0.47 mg/dL (0.55-1.02)
[2019-01-18 05:14] LABS: ALKALINE PHOSPHATASE 264 U/L (45-117); BILIRUBIN,TOTAL 3.6 mg/dL (0.2-1.0); TOTAL PROTEIN 7.5 g/dL (6.4-8.2)
[2019-01-18] MEDS ORDERED: PANTOPRAZOLE 40 MG IV IVPush SCH (06:00)
[2019-01-18 06:12] VITALS: BP 114/78
[2019-01-18] MEDS ORDERED: CEFTRIAXONE PMX 2GM/50ML 50 ML IV SCH (07:00)
[2019-01-18] MEDS ORDERED: METRONIDAZOLE PMX 500MG/100ML 100 ML IV SCH (07:00)
[2019-01-18] MEDS: DOXYCYCLINE 100MG TABLET PO SCH ×2 (10:24→21:09)
[2019-01-18 12:55] VITALS: BP 112/66
[2019-01-18] MEDS: OMEPRAZOLE 20 MG CAPSULE.DR PO SCH (17:22)
[2019-01-18] MEDS: FUROSEMIDE 20 MG TABLET PO SCH (17:22)
[2019-01-18] MEDS: SPIRONOLACTONE 25 MG TABLET PO SCH (17:33)
[2019-01-18] MEDS: METRONIDAZOLE PMX 500MG/100ML 100 ML IV SCH (17:34)
[2019-01-18 19:33] VITALS: BP 99/69
[2019-01-18] MEDS ORDERED: DOXYCYCLINE 100MG TABLET PO SCH (21:00)
[2019-01-19] MEDS: methylPREDNISolone SOD SUCC 125 MG/2 ML IVPush SCH ×4 (00:06→20:50)
[2019-01-19] MEDS: POTASSIUM CHLORIDE 20 MEQ, MAGNESIUM SULFATE 2 GM, THIAMINE 200 MG, MVI ADULT 10 ML, FO... IV SCH (00:06)
[2019-01-19 01:24] VITALS: BP 97/59
[2019-01-19] MEDS: ALBUTEROL SULFATE 2.5 MG/3 ML NPPB PRN ×2 (01:44→19:01)
[2019-01-19] MEDS: METRONIDAZOLE PMX 500MG/100ML 100 ML IV SCH ×3 (02:25→18:38)
[2019-01-19] MEDS: OMEPRAZOLE 20 MG CAPSULE.DR PO SCH ×2 (05:58→16:18)
[2019-01-19 06:53] VITALS: BP 113/77
[2019-01-19] MEDS: FUROSEMIDE 20 MG TABLET PO SCH (09:39)
[2019-01-19] MEDS: DOXYCYCLINE 100MG TABLET PO SCH ×2 (09:39→20:50)
[2019-01-19] MEDS: CEFTRIAXONE PMX 2GM/50ML 50 ML IV SCH (09:39)
[2019-01-19] MEDS: LACTULOSE 20 GM/30 ML UDC PO SCH ×3 (09:39→20:53)
[2019-01-19] MEDS: SPIRONOLACTONE 25 MG TABLET PO SCH (09:40)
[2019-01-19 09:41] LABS: MEAN CORPUSCULAR HEMOGLOBIN 34.7 pg (27.0-34.8); MEAN CORPUSCULAR HGB CONC 33.2 g/dL (32.4-35.8); MEAN CORPUSCULAR VOLUME 104.6 fL (80-100); MEAN PLATELET VOLUME 8.5 fL (7.4-10.4); PLATELET COUNT 113 x10^3/uL (130-400); RED BLOOD COUNT 3.21 x10^6/uL (3.82-5.3); RED CELL DISTRIBUTION WIDTH 15.6 % (9.6-15.2)
[2019-01-19] MEDS: PANTOPRAZOLE 40 MG IV IVPush SCH ×2 (09:46→20:50)
[2019-01-19 09:47] LABS: ALANINE AMINOTRANSFERASE 70 U/L (12-78); ALBUMIN 2.2 g/dL (3.4-5.0); ANION GAP 6 mmol/L (5-15); CALCIUM 7.6 mg/dL (8.5-10.1); CHLORIDE 113 mmol/L (98-107); CREATININE 0.49 mg/dL (0.55-1.02)
[2019-01-19 10:00] LABS: ALKALINE PHOSPHATASE 211 U/L (45-117); TOTAL PROTEIN 6.8 g/dL (6.4-8.2)
[2019-01-19 10:20] LABS: BASOPHILS % (AUTO) 0 % (0-1); EOSINOPHILS % (AUTO) 0 % (1-7); LYMPHOCYTES # (AUTO) 0.44 x10^3/uL (1-3.4); LYMPHOCYTES % (AUTO) 4 % (22-44); MD SCAN; MONOCYTES # (AUTO) 0.03 x10^3/uL (0.2-0.8); MONOCYTES % (AUTO) 0 % (2-9); NEUTROPHILS # (AUTO) 10.41 x10^3/uL (1.8-6.8); NEUTROPHILS % (AUTO) 96 % (42-75)
[2019-01-19 13:38] VITALS: BP 112/71
[2019-01-19 18:32] VITALS: BP 109/69
[2019-01-19] MEDS ORDERED: DIPHENHYDRAMINE 25 MG CAPSULE PO ONE (20:30)
[2019-01-20 00:50] VITALS: BP 112/72
[2019-01-20] MEDS: methylPREDNISolone SOD SUCC 125 MG/2 ML IVPush SCH ×2 (02:03→08:30)
[2019-01-20] MEDS: METRONIDAZOLE PMX 500MG/100ML 100 ML IV SCH ×2 (02:03→09:21)
[2019-01-20] MEDS: POTASSIUM CHLORIDE 20 MEQ, MAGNESIUM SULFATE 2 GM, THIAMINE 200 MG, MVI ADULT 10 ML, FO... IV SCH (03:24)
[2019-01-20] MEDS: OMEPRAZOLE 20 MG CAPSULE.DR PO SCH (03:48)
[2019-01-20 06:09] LABS: MEAN CORPUSCULAR HEMOGLOBIN 35.2 pg (27.0-34.8); MEAN CORPUSCULAR HGB CONC 33.6 g/dL (32.4-35.8); MEAN CORPUSCULAR VOLUME 104.9 fL (80-100); RED BLOOD COUNT 3.08 x10^6/uL (3.82-5.3); RED CELL DISTRIBUTION WIDTH 15.7 % (9.6-15.2)
[2019-01-20 06:14] LABS: ANION GAP 4 mmol/L (5-15); CALCIUM 7.4 mg/dL (8.5-10.1); CHLORIDE 109 mmol/L (98-107)
[2019-01-20 06:17] LABS: CREATININE 0.44 mg/dL (0.55-1.02)
[2019-01-20 06:59] LABS: BASOPHILS % (AUTO) 0 % (0-1); EOSINOPHILS % (AUTO) 0 % (1-7); LYMPHOCYTES # (AUTO) 0.46 x10^3/uL (1-3.4); LYMPHOCYTES % (AUTO) 6 % (22-44); MD SCAN; MONOCYTES # (AUTO) 0.07 x10^3/uL (0.2-0.8); MONOCYTES % (AUTO) 1 % (2-9); NEUTROPHILS # (AUTO) 7.08 x10^3/uL (1.8-6.8); NEUTROPHILS % (AUTO) 93 % (42-75); PLATELET COUNT 83 x10^3/uL (130-400)
[2019-01-20 08:00] VITALS: BP 108/76
[2019-01-20 08:27] LABS: HCG UR SG 1.022 (1.003-1.030)
[2019-01-20] MEDS: PANTOPRAZOLE 40 MG IV IVPush SCH (08:30)
[2019-01-20] MEDS ORDERED: POTASSIUM CHLORIDE 20 MEQ TAB.ER.PRT PO ONE ×2 (08:30→11:30)
[2019-01-20] MEDS: CEFTRIAXONE PMX 2GM/50ML 50 ML IV SCH (09:00)
[2019-01-20] MEDS: SPIRONOLACTONE 25 MG TABLET PO SCH (09:00)
[2019-01-20] MEDS ORDERED: FUROSEMIDE 40 MG TABLET PO SCH (09:00)
[2019-01-20] MEDS: DOXYCYCLINE 100MG TABLET PO SCH (09:00)
[2019-01-20] MEDS: LACTULOSE 20 GM/30 ML UDC PO SCH (09:00)
== END 2019-01-20 11:42 | disposition left against medical advice (07) | DRG 280 ==
LOC: ED 22:39 → EDIP 23:05 → 3N 01-18 00:13
PROVIDERS: ADMIT Family Medicine; ATTEND Hospitalist
DX: K70.31 Alcoholic cirrhosis of liver with ascites (principal); K70.11 Alcoholic hepatitis with ascites; J96.01 Acute respiratory failure with hypoxia; K65.2 Spontaneous bacterial peritonitis; J18.9 Pneumonia, unspecified organism; K92.0 Hematemesis; J44.0 Chronic obstructive pulmonary disease with (acute) lower respiratory infection; F20.9 Schizophrenia, unspecified; K42.0 Umbilical hernia with obstruction, without gangrene; J44.1 Chronic obstructive pulmonary disease with (acute) exacerbation; B18.2 Chronic viral hepatitis C; F15.10 Other stimulant abuse, uncomplicated; B95.8 Unspecified staphylococcus as the cause of diseases classified elsewhere; F10.20 Alcohol dependence, uncomplicated; Z53.29 Procedure and treatment not carried out because of patient's decision for other reasons; E66.9 Obesity, unspecified; Z68.37 Body mass index [BMI] 37.0-37.9, adult; F41.1 Generalized anxiety disorder; Y95 Nosocomial condition; Z59.0 Homelessness; Z80.3 Family history of malignant neoplasm of breast; Z82.49 Family history of ischemic heart disease and other diseases of the circulatory system; Z83.3 Family history of diabetes mellitus; Z90.49 Acquired absence of other specified parts of digestive tract; Z72.0 Tobacco use
CPT/HCPCS: 36415; 71045; 74177; 76700; 80048; 80053; 80307; 81025; 82140; 82150; 82607; 83605; 83690; 83735; 84100; 84145; 84443; 85025; 85610; 85730; 86850; 86900; 87040; 87070; 87205; 93005; 94640; 99285; G0378; J0696; J0744; J2543; J3411; J3475; J3480; J7042; J7613; Q9967; C9113; J2270; J2930; J7030; Q0163

== ENCOUNTER 2019-01-22 17:39 | Inpatient (IN) | payer MEDICAID ==
[~2019-01-22] VITALS: Ht 162.6 cm; Wt 107.0 kg
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
--- NOTE | 2019-01-22 19:00 | NUR ---
PT C/O "I THINK I MIGHT'VE POOPED IN MY PANTS OR SOMETHING WHEN I VOMITED." CLEAN PANTS AND PERSONAL CARE SUPPLIES PROVIDED TO PT FOR HYGEINE. AWAITING LAB RESULTS.
[2019-01-22 19:18] LABS: MEAN CORPUSCULAR HEMOGLOBIN 35.6 pg (27.0-34.8); MEAN CORPUSCULAR HGB CONC 33.7 g/dL (32.4-35.8); MEAN CORPUSCULAR VOLUME 105.5 fL (80-100); MEAN PLATELET VOLUME 7.6 fL (7.4-10.4); PLATELET COUNT 118 x10^3/uL (130-400); RED BLOOD COUNT 2.81 x10^6/uL (3.82-5.3)
[2019-01-22 19:27] LABS: ALANINE AMINOTRANSFERASE 102 U/L (12-78); ALBUMIN 1.9 g/dL (3.4-5.0); ANION GAP 6 mmol/L (5-15); CHLORIDE 105 mmol/L (98-107); CREATININE 0.53 mg/dL (0.55-1.02); INTERNATIONAL NORMALIZED RATIO 1.49 (0.93-1.1); PROTHROMBIN TIME 15.4 Seconds (9.6-11.5)
[2019-01-22 19:30] LABS: ALKALINE PHOSPHATASE 197 U/L (45-117); BILIRUBIN,TOTAL 1.7 mg/dL (0.2-1.0); TOTAL PROTEIN 5.3 g/dL (6.4-8.2)
[2019-01-22] MEDS ORDERED: SODIUM CHLORIDE FLUSH 10ML SYR IVF ONE (19:30)
[2019-01-22 19:48] LABS: BASOPHILS # (AUTO) 0.02 x10^3/uL (0-0.1); BASOPHILS % (AUTO) 0 % (0-1); EOSINOPHILS # (AUTO) 0.19 x10^3/uL (0-0.4); EOSINOPHILS % (AUTO) 2 % (1-7); LYMPHOCYTES # (AUTO) 1.96 x10^3/uL (1-3.4); LYMPHOCYTES % (AUTO) 18 % (22-44); MD MORPH REVIEW ONLY; MONOCYTES % (AUTO) 7 % (2-9); NEUTROPHILS % (AUTO) 73 % (42-75); RED CELL DISTRIBUTION WIDTH 15.4 % (9.6-15.2)
[2019-01-22 19:49] LABS: <PLATELET ESTIMATE> DECREASED; <PLT MORPHOLOGY> NORMAL PLT MORPH; ANISOCYTOSIS 1+; POLYCHROMASIA 1+
[2019-01-22] MEDS ORDERED: PANTOPRAZOLE 80 MG in SODIUM CHLORIDE 0.9% 50 ML IVPB ONE (19:59)
[2019-01-22] MEDS ORDERED: PANTOPRAZOLE 80 MG in SODIUM CHLORIDE 0.9% 100 ML IV SCH (19:59)
--- NOTE | 2019-01-22 20:23 | NUR ---
2ND IV STARTED. RV'WD POC WITH PT. HOSPITALIST AT BS AT THIS TIME.
[2019-01-22] MEDS ORDERED: SODIUM CHLORIDE FLUSH 10ML SYR IVF PRN (21:00)
--- NOTE | 2019-01-22 21:26 | NUR ---
LABOR DELIVERY SPECIALIST AT BS. PT UNDERSTANDS PLAN FOR ADMISSION.
[2019-01-22] MEDS ORDERED: POTASSIUM CHLORIDE 20 MEQ in LACTATED RINGERS 1,000 ML IV SCH (21:57)
[2019-01-22] MEDS ORDERED: LORazepam 2 MG/ML, 1ML IV PRN ×4 (22:00)
[2019-01-22] MEDS ORDERED: LABETALOL 5MG/ML, 20ML IVPush PRN (22:00)
[2019-01-22] MEDS ORDERED: ONDANSETRON 2MG/ML, 2ML IVPush PRN (22:00)
[2019-01-22] MEDS ORDERED: BISACODYL 10 MG SUPP PR PRN (22:00)
[2019-01-22] MEDS ORDERED: LORazepam 2 MG/ML, 1ML IVPush PRN (22:00)
[2019-01-22] MEDS ORDERED: CEFTRIAXONE PMX 2GM/50ML 50 ML IV SCH (22:30)
[2019-01-22] MEDS ORDERED: DOXYCYCLINE 100 MG in DEXTROSE 5% 250 ML IV SCH (22:30)
[2019-01-22] MEDS: OCTREOTIDE 500 MCG in SODIUM CHLORIDE 0.9% 249 ML IV SCH (23:04)
[2019-01-23 00:58] VITALS: BP 118/76
[2019-01-23 01:33] VITALS: BP 91/62
[2019-01-23] MEDS ORDERED: POTASSIUM CHLORIDE 20 MEQ TAB.ER.PRT PO ONE (06:30)
[2019-01-23] MEDS: PANTOPRAZOLE 80 MG in SODIUM CHLORIDE 0.9% 100 ML IV SCH ×2 (07:00→16:38)
[2019-01-23 08:00] VITALS: BP 98/56
[2019-01-23] MEDS: DOXYCYCLINE 100MG TABLET PO SCH ×2 (08:14→21:00)
[2019-01-23 09:40] LABS: ANION GAP 9 mmol/L (5-15); CALCIUM 7.2 mg/dL (8.5-10.1); CHLORIDE 109 mmol/L (98-107); CREATININE 0.55 mg/dL (0.55-1.02)
[2019-01-23] MEDS ORDERED: LORazepam 2 MG/ML, 1ML IVPush ONE (10:00)
[2019-01-23] MEDS ORDERED: PROPOFOL 10 MG/ML, 20ML ONE (11:09)
[2019-01-23] MEDS: AMPICILLIN/SULBACTAM 3 GM in SODIUM CHLORIDE 0.9% 100 ML IV SCH ×2 (12:30→13:29)
[2019-01-23 13:08] LABS: MEAN CORPUSCULAR HEMOGLOBIN 35.3 pg (27.0-34.8); MEAN CORPUSCULAR HGB CONC 33.5 g/dL (32.4-35.8); MEAN CORPUSCULAR VOLUME 105.4 fL (80-100); RED BLOOD COUNT 2.85 x10^6/uL (3.82-5.3); RED CELL DISTRIBUTION WIDTH 16.3 % (9.6-15.2)
[2019-01-23 13:12] LABS: BASOPHILS # (AUTO) 0.19 x10^3/uL (0-0.1); BASOPHILS % (AUTO) 2 % (0-1); EOSINOPHILS # (AUTO) 0.09 x10^3/uL (0-0.4); EOSINOPHILS % (AUTO) 1 % (1-7); LYMPHOCYTES # (AUTO) 2.41 x10^3/uL (1-3.4); LYMPHOCYTES % (AUTO) 28 % (22-44); MD SCAN; MONOCYTES # (AUTO) 0.39 x10^3/uL (0.2-0.8); MONOCYTES % (AUTO) 5 % (2-9); NEUTROPHILS % (AUTO) 65 % (42-75)
[2019-01-23] MEDS: PANTOPRAZOLE 40 MG IV IVPush SCH (13:29)
[2019-01-23] MEDS: FLUCONAZOLE 100 MG TABLET PO SCH (13:29)
[2019-01-23 14:00] VITALS: BP 90/53
[2019-01-23] MEDS: POTASSIUM CHLORIDE 20 MEQ, MAGNESIUM SULFATE 1 GM, MVI ADULT 10 ML, THIAMINE 200 MG, FO... IV SCH (15:00)
[2019-01-23] MEDS: D5%-LACTATED RINGERS 1,000 ML IV SCH (15:00)
[2019-01-23] MEDS: OCTREOTIDE 500 MCG in SODIUM CHLORIDE 0.9% 249 ML IV SCH ×2 (15:10→16:37)
[2019-01-23] MEDS: LORazepam 2 MG/ML, 1ML IV PRN ×2 (16:58→22:58)
[2019-01-23] MEDS ORDERED: LORazepam 2 MG/ML, 1ML IVPush PRN (17:00)
[2019-01-23 19:47] VITALS: BP 110/70
[2019-01-23] MEDS: AMOXICILLIN/CLAV 875-125MG TABLET PO SCH (21:00)
[2019-01-24] MEDS: PANTOPRAZOLE 40 MG IV IVPush SCH ×3 (00:19→23:37)
[2019-01-24] MEDS: D5%-LACTATED RINGERS 1,000 ML IV SCH ×3 (01:00→21:00)
[2019-01-24] MEDS: LIDODERM 5% PATCH TD PRN ×2 (01:09→12:18)
[2019-01-24 01:43] VITALS: BP 104/66
[2019-01-24 05:12] LABS: MEAN CORPUSCULAR HEMOGLOBIN 35.8 pg (27.0-34.8); MEAN CORPUSCULAR HGB CONC 33.3 g/dL (32.4-35.8); MEAN CORPUSCULAR VOLUME 107.3 fL (80-100); RED BLOOD COUNT 2.49 x10^6/uL (3.82-5.3); RED CELL DISTRIBUTION WIDTH 16.9 % (9.6-15.2)
[2019-01-24 05:18] LABS: ALANINE AMINOTRANSFERASE 114 U/L (12-78); ALBUMIN 1.9 g/dL (3.4-5.0); ANION GAP 5 mmol/L (5-15); CALCIUM 7.2 mg/dL (8.5-10.1); CHLORIDE 110 mmol/L (98-107); CREATININE 0.58 mg/dL (0.55-1.02)
[2019-01-24 05:20] LABS: ALKALINE PHOSPHATASE 172 U/L (45-117); BILIRUBIN,TOTAL 2.8 mg/dL (0.2-1.0); TOTAL PROTEIN 5.1 g/dL (6.4-8.2)
[2019-01-24 05:58] LABS: BASOPHILS % (AUTO) 1 % (0-1); EOSINOPHILS # (AUTO) 0.15 x10^3/uL (0-0.4); EOSINOPHILS % (AUTO) 2 % (1-7); LYMPHOCYTES # (AUTO) 1.56 x10^3/uL (1-3.4); LYMPHOCYTES % (AUTO) 22 % (22-44); MD SCAN; MEAN PLATELET VOLUME 7.9 fL (7.4-10.4); MONOCYTES # (AUTO) 0.42 x10^3/uL (0.2-0.8); MONOCYTES % (AUTO) 6 % (2-9); NEUTROPHILS # (AUTO) 5.03 x10^3/uL (1.8-6.8); NEUTROPHILS % (AUTO) 69 % (42-75); PLATELET COUNT 76 x10^3/uL (130-400)
[2019-01-24 07:18] VITALS: BP 118/72
[2019-01-24] MEDS: OCTREOTIDE 500 MCG in SODIUM CHLORIDE 0.9% 249 ML IV SCH ×2 (07:18→18:32)
[2019-01-24] MEDS: DOXYCYCLINE 100MG TABLET PO SCH ×2 (08:45→20:53)
[2019-01-24] MEDS: AMOXICILLIN/CLAV 875-125MG TABLET PO SCH ×2 (08:45→20:53)
[2019-01-24] MEDS: FLUCONAZOLE 100 MG TABLET PO SCH (08:45)
[2019-01-24] MEDS: LORazepam 2 MG/ML, 1ML IV PRN ×2 (12:18→20:53)
[2019-01-24 12:26] LABS: MICROSCOPIC INDICATED
[2019-01-24 12:36] LABS: INTERNATIONAL NORMALIZED RATIO 1.31 (0.93-1.1); PROTHROMBIN TIME 13.6 Seconds (9.6-11.5)
[2019-01-24 12:59] LABS: AMPHETAMINE SCREEN, URINE Positive (Negative); BARBITURATE SCREEN, URINE Negative (Negative); BENZODIAZEPINE SCREEN, URINE Negative (Negative); CANNABINOID SCREEN, URINE Negative (Negative); COCAINE SCREEN, URINE Negative (Negative); METHADONE SCREEN, URINE Negative (Negative); OPIATE SCREEN, URINE Negative (Negative)
[2019-01-24 13:22] VITALS: BP 113/53
[2019-01-24 19:43] VITALS: BP 91/55
[2019-01-24] MEDS: DIPHENHYDRAMINE 25 MG CAPSULE PO PRN (23:37)
[2019-01-25 01:29] VITALS: BP 95/55
[2019-01-25] MEDS: POTASSIUM CHLORIDE 20 MEQ, MAGNESIUM SULFATE 1 GM, MVI ADULT 10 ML, THIAMINE 200 MG, FO... IV SCH ×2 (02:45→22:00)
[2019-01-25 06:14] LABS: ALANINE AMINOTRANSFERASE 107 U/L (12-78); ALBUMIN 1.7 g/dL (3.4-5.0); ANION GAP 4 mmol/L (5-15); CALCIUM 6.8 mg/dL (8.5-10.1); CHLORIDE 108 mmol/L (98-107)
[2019-01-25 06:16] LABS: ALKALINE PHOSPHATASE 216 U/L (45-117); BILIRUBIN,TOTAL 1.3 mg/dL (0.2-1.0); TOTAL PROTEIN 4.9 g/dL (6.4-8.2)
[2019-01-25 06:25] LABS: MEAN CORPUSCULAR HEMOGLOBIN 35.2 pg (27.0-34.8); MEAN CORPUSCULAR HGB CONC 32.8 g/dL (32.4-35.8); MEAN CORPUSCULAR VOLUME 107.1 fL (80-100); RED BLOOD COUNT 2.35 x10^6/uL (3.82-5.3); RED CELL DISTRIBUTION WIDTH 17.3 % (9.6-15.2)
[2019-01-25 06:29] LABS: MEAN PLATELET VOLUME 8.2 fL (7.4-10.4); PLATELET COUNT 82 x10^3/uL (130-400)
[2019-01-25 06:33] LABS: BASOPHILS # (AUTO) 0.01 x10^3/uL (0-0.1); BASOPHILS % (AUTO) 0 % (0-1); EOSINOPHILS # (AUTO) 0.03 x10^3/uL (0-0.4); EOSINOPHILS % (AUTO) 0 % (1-7); LYMPHOCYTES # (AUTO) 1.71 x10^3/uL (1-3.4); LYMPHOCYTES % (AUTO) 21 % (22-44); MD SCAN; MONOCYTES # (AUTO) 0.42 x10^3/uL (0.2-0.8); MONOCYTES % (AUTO) 5 % (2-9); NEUTROPHILS # (AUTO) 5.84 x10^3/uL (1.8-6.8); NEUTROPHILS % (AUTO) 73 % (42-75)
[2019-01-25] MEDS: D5%-LACTATED RINGERS 1,000 ML IV SCH ×2 (07:00→17:00)
[2019-01-25] MEDS: AMOXICILLIN/CLAV 875-125MG TABLET PO SCH (08:51)
[2019-01-25] MEDS: DOXYCYCLINE 100MG TABLET PO SCH ×2 (08:51→20:45)
[2019-01-25] MEDS: FLUCONAZOLE 100 MG TABLET PO SCH (08:52)
[2019-01-25 09:05] VITALS: BP 94/61
[2019-01-25] MEDS: OCTREOTIDE 500 MCG in SODIUM CHLORIDE 0.9% 249 ML IV SCH ×2 (09:49→19:45)
[2019-01-25] MEDS: PANTOPRAZOLE 40 MG IV IVPush SCH ×2 (12:38→23:57)
[2019-01-25 12:47] LABS: AMPHETAMINE SCREEN, URINE Positive (Negative); BARBITURATE SCREEN, URINE Negative (Negative); BENZODIAZEPINE SCREEN, URINE Negative (Negative); CANNABINOID SCREEN, URINE Negative (Negative); COCAINE SCREEN, URINE Negative (Negative); METHADONE SCREEN, URINE Negative (Negative); OPIATE SCREEN, URINE Negative (Negative)
[2019-01-25] MEDS: LIDODERM 5% PATCH TD PRN (13:16)
[2019-01-25 15:48] VITALS: BP 94/60
[2019-01-25 19:30] VITALS: BP 109/71
[2019-01-25] MEDS: DIPHENHYDRAMINE 25 MG CAPSULE PO PRN (19:45)
[2019-01-26 00:52] VITALS: BP 112/26
[2019-01-26] MEDS: D5%-LACTATED RINGERS 1,000 ML IV SCH ×2 (02:43→12:24)
[2019-01-26 05:09] LABS: MEAN CORPUSCULAR HEMOGLOBIN 35.6 pg (27.0-34.8); MEAN CORPUSCULAR HGB CONC 32.6 g/dL (32.4-35.8); MEAN CORPUSCULAR VOLUME 109.2 fL (80-100); RED BLOOD COUNT 2.37 x10^6/uL (3.82-5.3); RED CELL DISTRIBUTION WIDTH 17.1 % (9.6-15.2)
[2019-01-26 05:11] LABS: CHLORIDE 108 mmol/L (98-107)
[2019-01-26 05:22] LABS: ALANINE AMINOTRANSFERASE 94 U/L (12-78); ALBUMIN 1.8 g/dL (3.4-5.0); ALKALINE PHOSPHATASE 202 U/L (45-117); ANION GAP 4 mmol/L (5-15); BILIRUBIN,TOTAL 1.6 mg/dL (0.2-1.0); CALCIUM 6.8 mg/dL (8.5-10.1); CREATININE 0.63 mg/dL (0.55-1.02); TOTAL PROTEIN 5.1 g/dL (6.4-8.2)
[2019-01-26 05:40] LABS: MEAN PLATELET VOLUME 8.8 fL (7.4-10.4); PLATELET COUNT 73 x10^3/uL (130-400)
[2019-01-26 05:51] LABS: BASOPHILS # (AUTO) 0.02 x10^3/uL (0-0.1); BASOPHILS % (AUTO) 0 % (0-1); EOSINOPHILS # (AUTO) 0.12 x10^3/uL (0-0.4); EOSINOPHILS % (AUTO) 2 % (1-7); LYMPHOCYTES # (AUTO) 1.27 x10^3/uL (1-3.4); LYMPHOCYTES % (AUTO) 20 % (22-44); MD SCAN; MONOCYTES # (AUTO) 0.65 x10^3/uL (0.2-0.8); MONOCYTES % (AUTO) 10 % (2-9); NEUTROPHILS % (AUTO) 68 % (42-75)
[2019-01-26 08:00] VITALS: BP 105/68
[2019-01-26] MEDS: FLUCONAZOLE 100 MG TABLET PO SCH (08:59)
[2019-01-26] MEDS: DOXYCYCLINE 100MG TABLET PO SCH (08:59)
[2019-01-26] MEDS: OCTREOTIDE 500 MCG in SODIUM CHLORIDE 0.9% 249 ML IV SCH ×2 (09:14→22:10)
[2019-01-26 10:26] LABS: AMPHETAMINE SCREEN, URINE Positive (Negative); BARBITURATE SCREEN, URINE Negative (Negative); BENZODIAZEPINE SCREEN, URINE Negative (Negative); CANNABINOID SCREEN, URINE Negative (Negative); COCAINE SCREEN, URINE Negative (Negative); METHADONE SCREEN, URINE Negative (Negative); OPIATE SCREEN, URINE Negative (Negative)
[2019-01-26] MEDS: PANTOPRAZOLE 40 MG IV IVPush SCH (12:34)
[2019-01-26 12:39] VITALS: BP 95/58
[2019-01-26] MEDS: FUROSEMIDE 20 MG/2 ML IV ONE ×2 (13:00→15:55)
[2019-01-26] MEDS ORDERED: FUROSEMIDE 20 MG/2 ML IV ONE (13:30)
[2019-01-26] MEDS: LIDODERM 5% PATCH TD PRN (17:13)
[2019-01-26] MEDS: DIPHENHYDRAMINE 25 MG CAPSULE PO PRN (19:57)
[2019-01-26 20:28] VITALS: BP 99/61
[2019-01-27 03:09] VITALS: BP 112/67
[2019-01-27] MEDS ORDERED: PANTOPROZOLE 40MG TABLET PO SCH (06:00)
[2019-01-27 06:39] LABS: MEAN CORPUSCULAR HEMOGLOBIN 34.6 pg (27.0-34.8); MEAN CORPUSCULAR HGB CONC 32.5 g/dL (32.4-35.8); MEAN CORPUSCULAR VOLUME 106.5 fL (80-100); RED BLOOD COUNT 2.54 x10^6/uL (3.82-5.3); RED CELL DISTRIBUTION WIDTH 17.1 % (9.6-15.2)
[2019-01-27 06:51] LABS: ANION GAP 6 mmol/L (5-15); CALCIUM 7.4 mg/dL (8.5-10.1); CHLORIDE 108 mmol/L (98-107)
[2019-01-27 06:54] LABS: ALANINE AMINOTRANSFERASE 92 U/L (12-78); ALKALINE PHOSPHATASE 209 U/L (45-117); BILIRUBIN,TOTAL 1.5 mg/dL (0.2-1.0); CREATININE 0.49 mg/dL (0.55-1.02); TOTAL PROTEIN 5.6 g/dL (6.4-8.2)
[2019-01-27 07:05] LABS: MEAN PLATELET VOLUME 8.5 fL (7.4-10.4); PLATELET COUNT 75 x10^3/uL (130-400)
[2019-01-27 07:07] LABS: MD SCAN
[2019-01-27 07:09] LABS: BASOPHILS # (AUTO) 0.02 x10^3/uL (0-0.1); BASOPHILS % (AUTO) 0 % (0-1); EOSINOPHILS # (AUTO) 0.11 x10^3/uL (0-0.4); EOSINOPHILS % (AUTO) 2 % (1-7); LYMPHOCYTES # (AUTO) 1.53 x10^3/uL (1-3.4); LYMPHOCYTES % (AUTO) 23 % (22-44); MONOCYTES % (AUTO) 9 % (2-9); NEUTROPHILS # (AUTO) 4.35 x10^3/uL (1.8-6.8); NEUTROPHILS % (AUTO) 66 % (42-75)
[2019-01-27 07:10] VITALS: BP 114/72
[2019-01-27] MEDS: OCTREOTIDE 500 MCG in SODIUM CHLORIDE 0.9% 249 ML IV SCH (08:56)
[2019-01-27] MEDS: FLUCONAZOLE 100 MG TABLET PO SCH (08:57)
[2019-01-27 09:32] LABS: AMPHETAMINE SCREEN, URINE Negative (Negative); BARBITURATE SCREEN, URINE Negative (Negative); BENZODIAZEPINE SCREEN, URINE Negative (Negative); CANNABINOID SCREEN, URINE Negative (Negative); COCAINE SCREEN, URINE Negative (Negative); METHADONE SCREEN, URINE Negative (Negative); OPIATE SCREEN, URINE Negative (Negative)
[2019-01-27] MEDS ORDERED: PANTOPRAZOLE 40 MG IV IVPush SCH (18:00)
== END 2019-01-27 12:44 | disposition left against medical advice (07) | DRG 242 ==
LOC: ED 19:46 → EDIP 20:39 → 3N 21:46
PROVIDERS: ADMIT Internal Medicine; ATTEND Hospitalist
PROC: 0DJ08ZZ Inspection of Upper Intestinal Tract, Via Natural or Artificial Opening Endoscopic (ICD-10-PCS; principal; 2019-01-23 16:00)
DX: B37.81 Candidal esophagitis (principal); E43 Unspecified severe protein-calorie malnutrition; I85.11 Secondary esophageal varices with bleeding; J18.9 Pneumonia, unspecified organism; D68.9 Coagulation defect, unspecified; D69.59 Other secondary thrombocytopenia; D62 Acute posthemorrhagic anemia; E83.51 Hypocalcemia; K70.31 Alcoholic cirrhosis of liver with ascites; K76.6 Portal hypertension; F20.9 Schizophrenia, unspecified; F15.10 Other stimulant abuse, uncomplicated; K42.0 Umbilical hernia with obstruction, without gangrene; F41.1 Generalized anxiety disorder; B18.2 Chronic viral hepatitis C; E66.9 Obesity, unspecified; J44.9 Chronic obstructive pulmonary disease, unspecified; F17.210 Nicotine dependence, cigarettes, uncomplicated; F10.239 Alcohol dependence with withdrawal, unspecified; E87.6 Hypokalemia; K31.89 Other diseases of stomach and duodenum; J44.0 Chronic obstructive pulmonary disease with (acute) lower respiratory infection; Z53.21 Procedure and treatment not carried out due to patient leaving prior to being seen by health care provider; I86.4 Gastric varices; K22.8 Other specified diseases of esophagus; Z87.01 Personal history of pneumonia (recurrent); Z80.3 Family history of malignant neoplasm of breast; Z83.3 Family history of diabetes mellitus; Z82.49 Family history of ischemic heart disease and other diseases of the circulatory system; Z81.1 Family history of alcohol abuse and dependence; Z59.0 Homelessness; Z71.6 Tobacco abuse counseling; Z90.49 Acquired absence of other specified parts of digestive tract; Z79.899 Other long term (current) drug therapy; Z68.41 Body mass index [BMI] 40.0-44.9, adult
CPT/HCPCS: 36415; 71045; 80048; 80053; 80307; 81001; 83690; 83735; 84100; 85014; 85018; 85025; 85610; 85730; 86850; 86900; 99285; G0378; J0295; J0696; J2354; J2405; J2704; J3411; J3475; J3480; J7060; C9113; J1940; J2060; J7050; J7120; Q0163

== ENCOUNTER 2019-08-22 21:18 | Inpatient (IN) | payer MEDICAID ==
[~2019-08-22] VITALS: Ht 162.6 cm; Wt 117.9 kg
[2019-08-22] MEDS ORDERED: ALBUTEROL/IPRATROPIUM 2.5MG/0.5MG, 3 ML NPPB ONE (21:30)
--- NOTE | 2019-08-22 21:31 | NUR ---
Pt presents to ed c/o recent sob, fever, and chills since this am. Hx of chf and copd. "i should be on oxygen, but i dont." Ra sat of 83% noted by [facility]. 4L nc maintain sat above 90%. Given duoneb on the way w/ little relief to pt. Pt abdomen grossly distended and firm. Hx of ascites and multiple pericentesis. All monitoring applied. Nghia. at bedside for assessment.
[2019-08-22 21:50] LABS: BASOPHILS # (AUTO) 0.03 x10^3/uL (0-0.1); BASOPHILS % (AUTO) 1 % (0-1); EOSINOPHILS # (AUTO) 0.09 x10^3/uL (0-0.4); EOSINOPHILS % (AUTO) 2 % (1-7); LYMPHOCYTES # (AUTO) 1.22 x10^3/uL (1-3.4); LYMPHOCYTES % (AUTO) 25 % (22-44); MD NO; MEAN CORPUSCULAR HEMOGLOBIN 30.6 pg (27.0-34.8); MEAN CORPUSCULAR HGB CONC 31.8 g/dL (32.4-35.8); MEAN CORPUSCULAR VOLUME 96.1 fL (80-100); MONOCYTES % (AUTO) 14 % (2-9); NEUTROPHILS # (AUTO) 2.86 x10^3/uL (1.8-6.8); NEUTROPHILS % (AUTO) 59 % (42-75); PLATELET COUNT 159 x10^3/uL (130-400); RED BLOOD COUNT 4.02 x10^6/uL (3.82-5.3)
[2019-08-22 22:01] LABS: ALANINE AMINOTRANSFERASE 50 U/L (12-78); ALBUMIN 2.1 g/dL (3.4-5.0); ANION GAP 3 mmol/L (5-15); CHLORIDE 112 mmol/L (98-107); CREATININE 0.44 mg/dL (0.55-1.02)
--- NOTE | 2019-08-22 22:02 | NUR ---
Pt refusing breathing treatment. Will keep on mar in case pt would like later.
[2019-08-22 22:03] LABS: ALKALINE PHOSPHATASE 246 U/L (45-117); BILIRUBIN,TOTAL 1.9 mg/dL (0.2-1.0); TOTAL PROTEIN 6.2 g/dL (6.4-8.2)
--- NOTE | 2019-08-22 22:33 | NUR ---
Called us and us states they are en route to take pt for paracentesis.
[2019-08-22] MEDS ORDERED: LIDOCAINE 1%, 20ML ONE (22:42)
--- NOTE | 2019-08-22 23:14 | NUR ---
Pt still in us.
--- NOTE | 2019-08-22 23:44 | NUR ---
Pt back from us/paracentesis. 4.5 L of fluid drained off and pt states pain has decreased significantly, to a tolerable level. Wob from moderate distress to mild distress and states relief from sob. Vss. Call light within reach. Awaiting results.
[2019-08-22] MEDS ORDERED: NEOSPORIN OINT. PKT 1 PACKET ONE (23:49)
--- NOTE | 2019-08-23 00:19 | NUR ---
Pt c/o increased pain in abd of 09/24. Md notified. Awaiting further orders.
[2019-08-23] MEDS ORDERED: MORPHINE SULFATE 4 MG/ML, 1ML ONE (00:25)
[2019-08-23] MEDS ORDERED: ONDANSETRON 2MG/ML, 2ML ONE (00:25)
[2019-08-23] MEDS ORDERED: ONDANSETRON 2MG/ML, 2ML IVPush ONE (00:30)
[2019-08-23] MEDS ORDERED: MORPHINE SULFATE 4 MG/ML, 1ML IVPush PRN (00:30)
--- NOTE | 2019-08-23 00:58 | NUR ---
Pain significantly better after pain meds given. Pt sleeping comfortably on gurney. Rr even and unlabored. KESHIA. SAGRARIO.
--- NOTE | 2019-08-23 01:14 | NUR ---
Pt removed from O2 and maintain sat from 86-89, informed. Pt tbadm. Awaiting order.
[2019-08-23] MEDS ORDERED: DOCUSATE 100 MG CAPSULE PO PRN (02:00)
[2019-08-23] MEDS ORDERED: GUAIFENESIN/DM 200-20MG, 10ML UDC PO PRN (02:00)
[2019-08-23] MEDS ORDERED: SODIUM CHLORIDE FLUSH 10ML SYR IVF PRN (02:00)
[2019-08-23] MEDS ORDERED: hydrALAzine 20 MG/ML, 1ML IVPush PRN (02:00)
[2019-08-23] MEDS ORDERED: ONDANSETRON 2MG/ML, 2ML IVPush PRN (02:00)
[2019-08-23] MEDS ORDERED: OXYcodone/APAP 5/325MG TABLET PO PRN (02:00)
[2019-08-23 03:10] VITALS: BP 119/73
[2019-08-23] MEDS: ENOXAPARIN 40 MG/0.4 ML SQ SCH (03:39)
[2019-08-23] MEDS: ALBUTEROL HFA 90 MCG/SPRAY INH SCH ×4 (05:46→21:31)
[2019-08-23] MEDS ORDERED: LIDOCAINE 1%, 10ML ONE (07:49)
[2019-08-23] MEDS ORDERED: FENTANYL PF 100 MCG/2ML ONE (07:57)
[2019-08-23] MEDS ORDERED: METOCLOPRAMIDE 5 MG/ML, 2ML IVPush SCH (08:00)
[2019-08-23] MEDS: FAMOTIDINE 20 MG TABLET PO SCH ×2 (09:00→21:31)
[2019-08-23 09:03] LABS: ALANINE AMINOTRANSFERASE 50 U/L (12-78); ALBUMIN 2.1 g/dL (3.4-5.0); ANION GAP 3 mmol/L (5-15); CALCIUM 7.9 mg/dL (8.5-10.1); CHLORIDE 111 mmol/L (98-107)
[2019-08-23 09:05] LABS: ALKALINE PHOSPHATASE 223 U/L (45-117); BILIRUBIN,TOTAL 2.1 mg/dL (0.2-1.0)
[2019-08-23 09:13] VITALS: BP 115/87
[2019-08-23] MEDS ORDERED: FAMOTIDINE 40 MG TABLET ONE (09:14)
[2019-08-23] MEDS: DOXYCYCLINE 100MG CAP PO SCH ×2 (09:26→21:31)
[2019-08-23] MEDS: FUROSEMIDE 40 MG/4 ML IV SCH ×2 (09:26→17:38)
[2019-08-23] MEDS: CEFTRIAXONE PMX 1GM/50ML 50 ML IV SCH (10:19)
[2019-08-23 15:11] VITALS: BP 126/88
[2019-08-23] MEDS: morphine SULFATE 10 MG/ML, 1ML IVPush PRN (16:12)
[2019-08-23 16:16] LABS: TROPONIN I < 0.015 ng/mL (0.000-0.045)
[2019-08-23] MEDS ORDERED: OMNIPAQUE 350 MG/ML, 75ML BOTTLE ONE (17:01)
[2019-08-23 20:20] VITALS: BP 144/83
[2019-08-23 22:37] LABS: TROPONIN I < 0.015 ng/mL (0.000-0.045)
[2019-08-24 02:26] VITALS: BP 111/73
[2019-08-24] MEDS: OXYcodone IR 5MG TABLET PO PRN ×4 (02:32→17:03)
[2019-08-24] MEDS: ENOXAPARIN 40 MG/0.4 ML SQ SCH (04:46)
[2019-08-24] MEDS: ALBUTEROL HFA 90 MCG/SPRAY INH SCH ×4 (05:15→20:40)
[2019-08-24 06:16] LABS: BASOPHILS # (AUTO) 0.02 x10^3/uL (0-0.1); BASOPHILS % (AUTO) 0 % (0-1); EOSINOPHILS # (AUTO) 0.06 x10^3/uL (0-0.4); EOSINOPHILS % (AUTO) 1 % (1-7); LYMPHOCYTES # (AUTO) 1.38 x10^3/uL (1-3.4); LYMPHOCYTES % (AUTO) 23 % (22-44); MD NO; MEAN CORPUSCULAR HGB CONC 32.1 g/dL (32.4-35.8); MEAN CORPUSCULAR VOLUME 96.8 fL (80-100); MEAN PLATELET VOLUME 6.2 fL (7.4-10.4); MONOCYTES # (AUTO) 0.67 x10^3/uL (0.2-0.8); MONOCYTES % (AUTO) 11 % (2-9); NEUTROPHILS # (AUTO) 3.88 x10^3/uL (1.8-6.8); NEUTROPHILS % (AUTO) 65 % (42-75); PLATELET COUNT 132 x10^3/uL (130-400); RED BLOOD COUNT 3.86 x10^6/uL (3.82-5.3)
[2019-08-24 06:26] LABS: CHLORIDE 108 mmol/L (98-107)
[2019-08-24 06:43] LABS: ALANINE AMINOTRANSFERASE 43 U/L (12-78); ALBUMIN 1.9 g/dL (3.4-5.0); ALKALINE PHOSPHATASE 169 U/L (45-117); ANION GAP 2 mmol/L (5-15); BILIRUBIN,TOTAL 1.8 mg/dL (0.2-1.0); CALCIUM 7.2 mg/dL (8.5-10.1); CREATININE 0.46 mg/dL (0.55-1.02); TOTAL PROTEIN 5.3 g/dL (6.4-8.2)
[2019-08-24 07:42] VITALS: BP 111/75
[2019-08-24] MEDS: DOXYCYCLINE 100MG CAP PO SCH ×2 (08:17→20:39)
[2019-08-24] MEDS: FUROSEMIDE 40 MG/4 ML IV SCH ×2 (08:17→17:03)
[2019-08-24] MEDS: CEFTRIAXONE PMX 1GM/50ML 50 ML IV SCH (08:18)
[2019-08-24] MEDS: FAMOTIDINE 20 MG TABLET PO SCH ×2 (08:18→20:39)
[2019-08-24] MEDS ORDERED: SPIRONOLACTONE 25 MG TABLET PO SCH (09:00)
[2019-08-24 12:45] VITALS: BP 115/68
[2019-08-24] MEDS: LACTULOSE 20 GM/30 ML UDC PO SCH ×2 (17:02→20:39)
[2019-08-24 19:18] VITALS: BP 111/85
[2019-08-25 00:54] VITALS: BP 122/61
[2019-08-25] MEDS: ACETAMINOPHEN 325 MG TABLET PO PRN ×2 (01:13→20:05)
[2019-08-25] MEDS: ALBUTEROL HFA 90 MCG/SPRAY INH PRN (01:17)
[2019-08-25] MEDS: ALBUTEROL HFA 90 MCG/SPRAY INH SCH ×4 (05:52→22:16)
[2019-08-25] MEDS ORDERED: ALBUMIN HUMAN 25% 100 ML IV ONE (07:30)
[2019-08-25 07:37] VITALS: BP 114/71
[2019-08-25] MEDS ORDERED: LIDOCAINE 1%, 10ML ONE (07:54)
[2019-08-25] MEDS: DOXYCYCLINE 100MG CAP PO SCH ×2 (09:53→22:17)
[2019-08-25] MEDS: FAMOTIDINE 20 MG TABLET PO SCH ×2 (09:53→22:15)
[2019-08-25] MEDS: CEFTRIAXONE PMX 1GM/50ML 50 ML IV SCH (09:54)
[2019-08-25] MEDS: LACTULOSE 20 GM/30 ML UDC PO SCH ×3 (09:58→22:15)
[2019-08-25] MEDS: FUROSEMIDE 40 MG/4 ML IV SCH ×2 (11:20→18:14)
[2019-08-25] MEDS: SPIRONOLACTONE 50 MG TABLET PO SCH (11:21)
[2019-08-25] MEDS: OXYcodone IR 5MG TABLET PO PRN ×3 (11:21→23:32)
[2019-08-25 14:52] VITALS: BP 111/67
[2019-08-25] MEDS: ENOXAPARIN 30 MG/0.3 ML SQ SCH (18:14)
[2019-08-26 01:34] VITALS: BP 102/58
[2019-08-26] MEDS: ALBUTEROL HFA 90 MCG/SPRAY INH SCH ×4 (06:23→21:41)
[2019-08-26] MEDS: ENOXAPARIN 30 MG/0.3 ML SQ SCH ×2 (06:23→16:33)
[2019-08-26 06:51] LABS: CREATININE 0.34 mg/dL (0.55-1.02)
[2019-08-26 07:10] VITALS: BP 96/58
[2019-08-26 07:10] LABS: ANION GAP 4 mmol/L (5-15); CHLORIDE 107 mmol/L (98-107)
[2019-08-26] MEDS ORDERED: FAMOTIDINE 40 MG TABLET ONE (08:53)
[2019-08-26] MEDS: DOXYCYCLINE 100MG CAP PO SCH ×2 (08:56→21:41)
[2019-08-26] MEDS: FUROSEMIDE 40 MG/4 ML IV SCH ×2 (08:56→16:34)
[2019-08-26] MEDS: CEFTRIAXONE PMX 1GM/50ML 50 ML IV SCH (08:56)
[2019-08-26] MEDS: FAMOTIDINE 20 MG TABLET PO SCH (08:56)
[2019-08-26] MEDS: LACTULOSE 20 GM/30 ML UDC PO SCH ×3 (08:56→21:41)
[2019-08-26] MEDS: SPIRONOLACTONE 50 MG TABLET PO SCH (08:57)
[2019-08-26] MEDS ORDERED: POTASSIUM CHLORIDE 20 MEQ TAB.ER.PRT PO ONE (09:30)
[2019-08-26] MEDS ORDERED: methylPREDNISolone SOD SUCC 125 MG/2 ML IV SCH (09:30)
[2019-08-26] MEDS: OXYcodone IR 5MG TABLET PO PRN ×2 (11:05→17:26)
[2019-08-26 12:50] VITALS: BP 104/68
[2019-08-26 19:24] VITALS: BP 117/69
[2019-08-26] MEDS: FAMOTIDINE 10 MG TAB PO SCH ×3 (21:32→21:41)
[2019-08-27 00:19] VITALS: BP 100/62
[2019-08-27] MEDS: OXYcodone IR 5MG TABLET PO PRN ×3 (00:48→23:06)
[2019-08-27] MEDS: TEMAZEPAM 15 MG CAPSULE PO PRN ×2 (03:16→20:27)
[2019-08-27] MEDS: ALBUTEROL HFA 90 MCG/SPRAY INH PRN (03:42)
[2019-08-27] MEDS: ENOXAPARIN 30 MG/0.3 ML SQ SCH ×2 (06:21→17:01)
[2019-08-27] MEDS: ALBUTEROL HFA 90 MCG/SPRAY INH SCH ×4 (06:21→20:35)
[2019-08-27 06:27] LABS: ANION GAP 2 mmol/L (5-15); CALCIUM 8.5 mg/dL (8.5-10.1); CHLORIDE 103 mmol/L (98-107); CREATININE 0.42 mg/dL (0.55-1.02)
[2019-08-27] MEDS: FUROSEMIDE 40 MG/4 ML IV SCH ×2 (08:41→16:56)
[2019-08-27] MEDS: LACTULOSE 20 GM/30 ML UDC PO SCH ×3 (08:41→20:27)
[2019-08-27] MEDS: CEFTRIAXONE PMX 1GM/50ML 50 ML IV SCH (08:41)
[2019-08-27] MEDS: SPIRONOLACTONE 50 MG TABLET PO SCH (08:41)
[2019-08-27] MEDS: DOXYCYCLINE 100MG CAP PO SCH ×2 (08:42→20:27)
[2019-08-27] MEDS ORDERED: MAGNESIUM SULFATE PMX 2GM/50ML 50 ML IV ONE (09:00)
[2019-08-27 09:46] VITALS: BP 129/77
[2019-08-27] MEDS: FAMOTIDINE 10 MG TAB PO SCH ×2 (10:19→20:27)
[2019-08-27] MEDS ORDERED: LIDOCAINE 1%, 10ML ONE (11:49)
[2019-08-27 15:07] VITALS: BP 114/68
[2019-08-27] MEDS: POTASSIUM CHLORIDE 20 MEQ PACKET PO SCH (17:00)
[2019-08-27 18:36] VITALS: BP 119/67
[2019-08-28 00:58] VITALS: BP 96/52
[2019-08-28 05:02] LABS: ANION GAP 2 mmol/L (5-15); CALCIUM 8.2 mg/dL (8.5-10.1); CHLORIDE 104 mmol/L (98-107); CREATININE 0.47 mg/dL (0.55-1.02)
[2019-08-28] MEDS: ENOXAPARIN 30 MG/0.3 ML SQ SCH ×2 (05:54→17:56)
[2019-08-28] MEDS: ALBUTEROL HFA 90 MCG/SPRAY INH SCH ×4 (05:54→20:17)
[2019-08-28] MEDS: OXYcodone IR 5MG TABLET PO PRN ×2 (05:58→15:47)
[2019-08-28 07:02] VITALS: BP 98/61
[2019-08-28] MEDS: FUROSEMIDE 40 MG/4 ML IV SCH ×2 (09:07→15:47)
[2019-08-28] MEDS: LACTULOSE 20 GM/30 ML UDC PO SCH ×3 (09:08→20:17)
[2019-08-28] MEDS: CEFTRIAXONE PMX 1GM/50ML 50 ML IV SCH (09:08)
[2019-08-28] MEDS: FAMOTIDINE 10 MG TAB PO SCH ×2 (09:08→20:17)
[2019-08-28] MEDS: DOXYCYCLINE 100MG CAP PO SCH ×2 (09:08→20:17)
[2019-08-28] MEDS: POTASSIUM CHLORIDE 20 MEQ PACKET PO SCH ×2 (09:08→15:47)
[2019-08-28] MEDS: SPIRONOLACTONE 50 MG TABLET PO SCH (09:08)
[2019-08-28 13:01] VITALS: BP 113/70
[2019-08-28] MEDS ORDERED: LIDOCAINE 1%, 10ML ONE (14:35)
[2019-08-28] MEDS: morphine SULFATE 10 MG/ML, 1ML IVPush PRN (17:57)
[2019-08-28 19:17] VITALS: BP 111/69
[2019-08-29 00:47] VITALS: BP 99/63
[2019-08-29] MEDS: OXYcodone IR 5MG TABLET PO PRN ×4 (00:47→21:06)
[2019-08-29] MEDS: ALBUTEROL HFA 90 MCG/SPRAY INH SCH ×4 (04:48→21:06)
[2019-08-29] MEDS: morphine SULFATE 10 MG/ML, 1ML IVPush PRN ×3 (04:49→19:52)
[2019-08-29] MEDS: ENOXAPARIN 30 MG/0.3 ML SQ SCH ×2 (04:49→17:00)
[2019-08-29 04:57] LABS: ALBUMIN 1.9 g/dL (3.4-5.0); ANION GAP 0 mmol/L (5-15); CALCIUM 8.4 mg/dL (8.5-10.1); CHLORIDE 101 mmol/L (98-107); CREATININE 0.45 mg/dL (0.55-1.02)
[2019-08-29 06:22] LABS: BASOPHILS # (AUTO) 0.08 x10^3/uL (0-0.1); BASOPHILS % (AUTO) 1 % (0-1); EOSINOPHILS # (AUTO) 0.08 x10^3/uL (0-0.4); EOSINOPHILS % (AUTO) 1 % (1-7); LYMPHOCYTES # (AUTO) 1.57 x10^3/uL (1-3.4); LYMPHOCYTES % (AUTO) 20 % (22-44); MD NO; MEAN CORPUSCULAR HEMOGLOBIN 30.7 pg (27.0-34.8); MEAN CORPUSCULAR HGB CONC 31.9 g/dL (32.4-35.8); MEAN CORPUSCULAR VOLUME 96.2 fL (80-100); MEAN PLATELET VOLUME 7.1 fL (7.4-10.4); MONOCYTES # (AUTO) 0.81 x10^3/uL (0.2-0.8); MONOCYTES % (AUTO) 10 % (2-9); NEUTROPHILS # (AUTO) 5.39 x10^3/uL (1.8-6.8); NEUTROPHILS % (AUTO) 68 % (42-75); PLATELET COUNT 98 x10^3/uL (130-400); RED CELL DISTRIBUTION WIDTH 17.1 % (9.6-15.2)
[2019-08-29 07:57] VITALS: BP 117/74
[2019-08-29] MEDS: CEFTRIAXONE PMX 1GM/50ML 50 ML IV SCH (08:15)
[2019-08-29] MEDS: FUROSEMIDE 40 MG/4 ML IV SCH ×2 (08:15→17:00)
[2019-08-29] MEDS: LACTULOSE 20 GM/30 ML UDC PO SCH ×3 (08:16→21:06)
[2019-08-29] MEDS: POTASSIUM CHLORIDE 20 MEQ PACKET PO SCH ×2 (08:16→16:59)
[2019-08-29] MEDS: FAMOTIDINE 10 MG TAB PO SCH ×2 (08:16→21:06)
[2019-08-29] MEDS: DOXYCYCLINE 100MG CAP PO SCH ×2 (08:16→21:06)
[2019-08-29] MEDS: SPIRONOLACTONE 50 MG TABLET PO SCH (08:16)
[2019-08-29 10:34] LABS: INTERNATIONAL NORMALIZED RATIO 1.07 (0.93-1.1); PROTHROMBIN TIME 11.4 Seconds (9.6-11.5)
[2019-08-29 14:47] VITALS: BP 116/58
[2019-08-29] MEDS: METHOCARBAMOL 500 MG TABLET PO PRN (17:11)
[2019-08-29] MEDS: ACETAMINOPHEN 325 MG TABLET PO PRN (17:11)
[2019-08-29 21:15] VITALS: BP 92/52
[2019-08-29] MEDS: ALBUTEROL HFA 90 MCG/SPRAY INH PRN (22:30)
[2019-08-30 01:26] VITALS: BP 115/74
[2019-08-30] MEDS: morphine SULFATE 10 MG/ML, 1ML IVPush PRN ×3 (03:18→20:51)
[2019-08-30] MEDS: ENOXAPARIN 30 MG/0.3 ML SQ SCH ×3 (06:25→08:49)
[2019-08-30] MEDS: ALBUTEROL HFA 90 MCG/SPRAY INH SCH ×4 (06:25→21:44)
[2019-08-30 07:10] VITALS: BP 106/56
[2019-08-30] MEDS: CEFTRIAXONE PMX 1GM/50ML 50 ML IV SCH (07:38)
[2019-08-30] MEDS: FUROSEMIDE 40 MG/4 ML IV SCH ×2 (07:38→17:07)
[2019-08-30 08:45] LABS: AMPHETAMINE SCREEN, URINE Negative (Negative); BARBITURATE SCREEN, URINE Negative (Negative); BENZODIAZEPINE SCREEN, URINE Negative (Negative); CANNABINOID SCREEN, URINE Negative (Negative); COCAINE SCREEN, URINE Negative (Negative); METHADONE SCREEN, URINE Negative (Negative); OPIATE SCREEN, URINE Positive (Negative)
[2019-08-30] MEDS: POTASSIUM CHLORIDE 20 MEQ PACKET PO SCH ×2 (09:43→17:07)
[2019-08-30] MEDS: METHOCARBAMOL 500 MG TABLET PO PRN ×2 (09:43→19:46)
[2019-08-30] MEDS: OXYcodone IR 5MG TABLET PO PRN ×2 (09:43→17:07)
[2019-08-30] MEDS: LACTULOSE 20 GM/30 ML UDC PO SCH ×3 (09:43→20:51)
[2019-08-30] MEDS: DOXYCYCLINE 100MG CAP PO SCH ×2 (09:43→20:51)
[2019-08-30] MEDS: SPIRONOLACTONE 50 MG TABLET PO SCH (09:43)
[2019-08-30] MEDS: FAMOTIDINE 10 MG TAB PO SCH ×2 (09:43→20:51)
[2019-08-30 14:00] VITALS: BP 115/77
[2019-08-30 19:04] VITALS: BP 108/71
[2019-08-30] MEDS: TEMAZEPAM 15 MG CAPSULE PO PRN (21:44)
[2019-08-31 00:14] VITALS: BP 100/60
[2019-08-31] MEDS: FUROSEMIDE 40 MG/4 ML IV SCH (07:30)
[2019-08-31] MEDS: POTASSIUM CHLORIDE 20 MEQ PACKET PO SCH (08:00)
[2019-08-31 08:23] VITALS: BP 110/65
[2019-08-31] MEDS: DOXYCYCLINE 100MG CAP PO SCH (09:00)
[2019-08-31] MEDS: FAMOTIDINE 10 MG TAB PO SCH (09:00)
[2019-08-31] MEDS: SPIRONOLACTONE 50 MG TABLET PO SCH (09:00)
[2019-08-31] MEDS: LACTULOSE 20 GM/30 ML UDC PO SCH (09:00)
[2019-08-31] MEDS: ALBUTEROL HFA 90 MCG/SPRAY INH SCH ×2 (09:25→11:00)
[2019-08-31] MEDS: CEFTRIAXONE PMX 1GM/50ML 50 ML IV SCH (09:25)
[2019-08-31] MEDS ORDERED: NALOXONE 1 MG/ML, 2ML ONE (10:41)
[2019-08-31] MEDS ORDERED: FENTANYL PF 100 MCG/2ML ONE (10:41)
[2019-08-31] MEDS ORDERED: MIDAZOLAM 1 MG/ML, 5ML ONE (10:41)
[2019-08-31] MEDS ORDERED: FLUMAZENIL 0.1 MG/1 ML, 5ML ONE (10:41)
[2019-08-31] MEDS ORDERED: LIDOCAINE 1%, 20ML ONE (10:43)
[2019-08-31] MEDS ORDERED: MORPHINE SULFATE 4 MG/ML, 1ML ONE (12:03)
[2019-08-31 12:06] VITALS: BP 105/63
[2019-08-31] MEDS: morphine SULFATE 10 MG/ML, 1ML IVPush PRN (12:06)
[2019-08-31] MEDS: OXYcodone IR 5MG TABLET PO PRN (12:16)
[2019-08-31] MEDS ORDERED: OXYC-302 PO (12:29)
[2019-08-31] MEDS ORDERED: SPIR50TA PO (12:29)
[2019-08-31] MEDS ORDERED: LACT20SO13 PO (12:45)
[2019-08-31] MEDS ORDERED: FURO-93 PO (12:45)
== END 2019-08-31 16:11 | disposition home or self-care (01) | DRG 280 ==
LOC: ED 21:57 → EDIP 08-23 01:39 → 3N 08-23 02:48
PROVIDERS: ADMIT Internal Medicine; ATTEND Family Medicine
PROC: 0W9G3ZZ Drainage of Peritoneal Cavity, Percutaneous Approach (ICD-10-PCS; principal; 2019-08-22)
PROC: 0W993ZZ Drainage of Right Pleural Cavity, Percutaneous Approach (ICD-10-PCS; 2019-08-23)
PROC: 0W9G3ZZ Drainage of Peritoneal Cavity, Percutaneous Approach (ICD-10-PCS; 2019-08-25)
PROC: 0W9G3ZZ Drainage of Peritoneal Cavity, Percutaneous Approach (ICD-10-PCS; 2019-08-27)
PROC: 0W9G3ZZ Drainage of Peritoneal Cavity, Percutaneous Approach (ICD-10-PCS; 2019-08-28)
PROC: 0W993ZZ Drainage of Right Pleural Cavity, Percutaneous Approach (ICD-10-PCS; 2019-08-28)
PROC: 0JH63XZ Insertion of Tunneled Vascular Access Device into Chest Subcutaneous Tissue and Fascia, Percutaneous Approach (ICD-10-PCS; 2019-08-31)
PROC: 05HY33Z Insertion of Infusion Device into Upper Vein, Percutaneous Approach (ICD-10-PCS; 2019-08-31)
PROC: BB4BZZZ Ultrasonography of Pleura (ICD-10-PCS; 2019-08-31)
PROC: 0W9930Z Drainage of Right Pleural Cavity with Drainage Device, Percutaneous Approach (ICD-10-PCS; 2019-08-31)
DX: K70.31 Alcoholic cirrhosis of liver with ascites (principal); B19.20 Unspecified viral hepatitis C without hepatic coma; J18.9 Pneumonia, unspecified organism; J44.0 Chronic obstructive pulmonary disease with (acute) lower respiratory infection; J96.01 Acute respiratory failure with hypoxia; K72.90 Hepatic failure, unspecified without coma; E66.01 Morbid (severe) obesity due to excess calories; E87.8 Other disorders of electrolyte and fluid balance, not elsewhere classified; F10.20 Alcohol dependence, uncomplicated; E88.09 Other disorders of plasma-protein metabolism, not elsewhere classified; F12.19 Cannabis abuse with unspecified cannabis-induced disorder; F17.210 Nicotine dependence, cigarettes, uncomplicated; F20.9 Schizophrenia, unspecified; F41.9 Anxiety disorder, unspecified; I35.8 Other nonrheumatic aortic valve disorders; J90 Pleural effusion, not elsewhere classified; J98.11 Atelectasis; Z71.6 Tobacco abuse counseling; Z68.41 Body mass index [BMI] 40.0-44.9, adult; Z80.9 Family history of malignant neoplasm, unspecified; Z82.3 Family history of stroke; Z82.49 Family history of ischemic heart disease and other diseases of the circulatory system; Z82.5 Family history of asthma and other chronic lower respiratory diseases; Z83.3 Family history of diabetes mellitus; Z90.49 Acquired absence of other specified parts of digestive tract
CPT/HCPCS: J3490 ×4; 32550; 32555; 36415; 49083; 71045; 71250; 71275; 80048; 80053; 80069; 80307; 82042; 82140; 83615; 83690; 83735; 84100; 84484; 85025; 85610; 87070; 87205; 89051; 93005; 93306; 93970; 94664; 96374; 99156; 99157; G0378; J0696; J1650; J1940; J2250; J2405; J3010; Q9967; C1729; J2270; J2310; J2930; J3475

== ENCOUNTER 2019-11-05 09:47 | Inpatient (IN) | payer MEDICAID ==
[~2019-11-05] VITALS: Ht 162.6 cm; Wt 98.8 kg
[~2019-11-05 09:47] MED LIST changes: +LACT20SO13 PO; +OXYC-302 PO; +SPIR50TA PO
[2019-11-05] MEDS ORDERED: OXYcodone/APAP 5/325MG TABLET PO ONE (10:00)
[2019-11-05] MEDS ORDERED: HYDROmorphone 1 MG/ML, 1ML INJ IM ONE ×2 (10:00→12:00)
[2019-11-05] MEDS ORDERED: HYDROmorphone 1 MG/ML, 1ML INJ ONE ×2 (10:03→12:17)
[2019-11-05] MEDS ORDERED: OXYcodone/APAP 5/325MG TABLET ONE (10:04)
[2019-11-05 10:45] LABS: BASOPHILS # (AUTO) 0.03 x10^3/uL (0-0.1); BASOPHILS % (AUTO) 0 % (0-1); EOSINOPHILS # (AUTO) 0.09 x10^3/uL (0-0.4); EOSINOPHILS % (AUTO) 1 % (1-7); LYMPHOCYTES # (AUTO) 0.92 x10^3/uL (1-3.4); LYMPHOCYTES % (AUTO) 10 % (22-44); MD NO; MEAN CORPUSCULAR HEMOGLOBIN 29.1 pg (27.0-34.8); MEAN CORPUSCULAR HGB CONC 31.6 g/dL (32.4-35.8); MEAN CORPUSCULAR VOLUME 92.2 fL (80-100); MEAN PLATELET VOLUME 6.8 fL (7.4-10.4); MONOCYTES # (AUTO) 1.05 x10^3/uL (0.2-0.8); MONOCYTES % (AUTO) 11 % (2-9); NEUTROPHILS % (AUTO) 77 % (42-75); PLATELET COUNT 194 x10^3/uL (130-400); RED CELL DISTRIBUTION WIDTH 16.6 % (9.6-15.2)
--- NOTE | 2019-11-05 10:47 | NUR ---
PT CAME IN FOR TUNNELED CHEST DRAIN PAIN. PT IS ON HOSPICE, REPORTS THAT SHE TRIED TO FIX A HOLE WITH A JUICE BOX STRAW LAST WEEK. PT IN BED WITH CONT SPO2, BP Q 30 MIN SIDE RAILS UP X2, CALL LIGHT IN REACH. WENT OVER PLAN OF CARE FROM ORDER LIST, AGREES TO PLAN. PT IS ON 3-4L NC NEEDED. PT ON 2L AT THIS TIME. LAB IN ROOM
[2019-11-05] MEDS ORDERED: MORP4SYR4 PO (10:53)
[2019-11-05 10:55] LABS: ANION GAP 5 mmol/L (5-15); CALCIUM 7.5 mg/dL (8.5-10.1); CHLORIDE 100 mmol/L (98-107); CREATININE 0.48 mg/dL (0.55-1.02)
[2019-11-05 10:59] LABS: INTERNATIONAL NORMALIZED RATIO 1.26 (0.93-1.1)
[2019-11-05] MEDS ORDERED: OMNIPAQUE 350 MG/ML, 75ML BOTTLE ONE (11:15)
--- NOTE | 2019-11-05 12:23 | NUR ---
BREAK RN: PT MEDICATED PER EMAR. PT RESTING ON [facility] W/ CALL LIGHT IN REACH AND SIDE RAILS UPX2. KESHIA SALINAS.
[2019-11-05] MEDS ORDERED: HYDROmorphone 2 MG/ML, 1ML IVPush PRN ×2 (12:30→16:30)
[2019-11-05 13:30] VITALS: BP 110/68
[2019-11-05] MEDS ORDERED: OXYcodone/APAP 5/325MG TABLET PO PRN (14:30)
[2019-11-05] MEDS ORDERED: POTASSIUM CHLORIDE 10% 40 MEQ/30 ML UDC PO ONE (16:30)
[2019-11-05] MEDS ORDERED: LABETALOL 5MG/ML, 20ML IVPush PRN (16:30)
[2019-11-05] MEDS ORDERED: ONDANSETRON 2MG/ML, 2ML IVPush PRN (16:30)
[2019-11-05] MEDS: HEPARIN 5,000 UNITS/ML, 1ML SQ SCH (16:30)
[2019-11-05] MEDS ORDERED: ACETAMINOPHEN 325 MG TABLET PO PRN (16:30)
[2019-11-05] MEDS ORDERED: ONDANSETRON ODT 4 MG PO PRN (16:30)
[2019-11-05] MEDS: CEFTRIAXONE PMX 1GM/50ML 50 ML IV SCH (17:17)
[2019-11-05 18:20] VITALS: BP 98/63
[2019-11-05] MEDS: LORazepam 1MG TABLET PO PRN (21:20)
[2019-11-05] MEDS: OXYcodone IR 5MG TABLET PO PRN (21:20)
[2019-11-05 21:32] LABS: MICROSCOPIC INDICATED
[2019-11-06] MEDS: LORazepam 1MG TABLET PO PRN ×2 (01:45→21:03)
[2019-11-06] MEDS: OXYcodone IR 5MG TABLET PO PRN ×4 (01:45→21:02)
[2019-11-06 03:13] VITALS: BP 103/67
[2019-11-06] MEDS: HEPARIN 5,000 UNITS/ML, 1ML SQ SCH ×2 (04:30→16:30)
[2019-11-06 05:23] LABS: INTERNATIONAL NORMALIZED RATIO 1.26 (0.93-1.1)
[2019-11-06 05:24] LABS: BASOPHILS # (AUTO) 0.02 x10^3/uL (0-0.1); BASOPHILS % (AUTO) 0 % (0-1); EOSINOPHILS # (AUTO) 0.12 x10^3/uL (0-0.4); EOSINOPHILS % (AUTO) 2 % (1-7); LYMPHOCYTES # (AUTO) 0.86 x10^3/uL (1-3.4); LYMPHOCYTES % (AUTO) 13 % (22-44); MD NO; MEAN CORPUSCULAR HEMOGLOBIN 29.1 pg (27.0-34.8); MEAN CORPUSCULAR HGB CONC 32.1 g/dL (32.4-35.8); MEAN CORPUSCULAR VOLUME 90.8 fL (80-100); MEAN PLATELET VOLUME 6.6 fL (7.4-10.4); MONOCYTES # (AUTO) 0.73 x10^3/uL (0.2-0.8); MONOCYTES % (AUTO) 11 % (2-9); NEUTROPHILS # (AUTO) 5.11 x10^3/uL (1.8-6.8); NEUTROPHILS % (AUTO) 75 % (42-75); PLATELET COUNT 173 x10^3/uL (130-400); RED BLOOD COUNT 3.74 x10^6/uL (3.82-5.3); RED CELL DISTRIBUTION WIDTH 16.3 % (9.6-15.2)
[2019-11-06 05:41] LABS: ALANINE AMINOTRANSFERASE 24 U/L (12-78); ALBUMIN 1.8 g/dL (3.4-5.0); ANION GAP 3 mmol/L (5-15); CALCIUM 8.2 mg/dL (8.5-10.1); CHLORIDE 104 mmol/L (98-107); CREATININE 0.38 mg/dL (0.55-1.02)
[2019-11-06 05:46] LABS: ALKALINE PHOSPHATASE 208 U/L (45-117); BILIRUBIN,TOTAL 1.6 mg/dL (0.2-1.0); TOTAL PROTEIN 6.5 g/dL (6.4-8.2)
[2019-11-06 07:39] VITALS: BP 108/67
[2019-11-06] MEDS ORDERED: NALOXONE 1 MG/ML, 2ML ONE (08:42)
[2019-11-06] MEDS ORDERED: FENTANYL PF 100 MCG/2ML ONE (08:42)
[2019-11-06] MEDS ORDERED: FLUMAZENIL 0.1 MG/1 ML, 5ML ONE (08:42)
[2019-11-06] MEDS ORDERED: MIDAZOLAM 1 MG/ML, 5ML ONE (08:42)
[2019-11-06] MEDS ORDERED: LIDOCAINE 1%, 20ML ONE (11:12)
[2019-11-06] MEDS ORDERED: LIDOCAINE 1%, 10ML ONE (11:53)
[2019-11-06 13:17] VITALS: BP 114/77
[2019-11-06] MEDS: CEFTRIAXONE PMX 1GM/50ML 50 ML IV SCH (16:53)
[2019-11-06 19:47] VITALS: BP 112/72
[2019-11-06] MEDS ORDERED: LORazepam 0.5MG TABLET ONE (21:01)
[2019-11-07] MEDS: OXYcodone IR 5MG TABLET PO PRN ×2 (02:06→06:15)
[2019-11-07] MEDS ORDERED: LORazepam 0.5MG TABLET ONE ×2 (02:07→06:14)
[2019-11-07] MEDS: LORazepam 1MG TABLET PO PRN ×2 (02:08→06:15)
[2019-11-07 02:13] VITALS: BP 107/69
[2019-11-07] MEDS: HEPARIN 5,000 UNITS/ML, 1ML SQ SCH ×2 (04:30→16:27)
[2019-11-07 06:41] VITALS: BP 108/69
[2019-11-07] MEDS: DOXYCYCLINE 100MG TABLET PO SCH ×2 (09:11→21:42)
[2019-11-07] MEDS: ERTAPENEM 1 GM in SODIUM CHLORIDE 0.9% 50 ML IV SCH (11:44)
[2019-11-07 14:22] VITALS: BP 99/63
[2019-11-07] MEDS: OXYcodone/APAP 5/325MG TABLET PO PRN ×2 (16:27→21:42)
[2019-11-07 18:39] VITALS: BP 121/77
[2019-11-08 00:48] VITALS: BP 107/59
[2019-11-08] MEDS: HEPARIN 5,000 UNITS/ML, 1ML SQ SCH (04:18)
[2019-11-08 05:36] LABS: BASOPHILS # (AUTO) 0.03 x10^3/uL (0-0.1); BASOPHILS % (AUTO) 0 % (0-1); EOSINOPHILS # (AUTO) 0.11 x10^3/uL (0-0.4); EOSINOPHILS % (AUTO) 2 % (1-7); LYMPHOCYTES # (AUTO) 0.87 x10^3/uL (1-3.4); LYMPHOCYTES % (AUTO) 14 % (22-44); MD NO; MEAN CORPUSCULAR HEMOGLOBIN 29.3 pg (27.0-34.8); MEAN CORPUSCULAR HGB CONC 32.1 g/dL (32.4-35.8); MEAN CORPUSCULAR VOLUME 91.3 fL (80-100); MEAN PLATELET VOLUME 6.5 fL (7.4-10.4); MONOCYTES # (AUTO) 0.73 x10^3/uL (0.2-0.8); MONOCYTES % (AUTO) 11 % (2-9); NEUTROPHILS % (AUTO) 73 % (42-75); PLATELET COUNT 157 x10^3/uL (130-400); RED BLOOD COUNT 3.73 x10^6/uL (3.82-5.3); RED CELL DISTRIBUTION WIDTH 16.3 % (9.6-15.2)
[2019-11-08 05:51] LABS: ANION GAP 4 mmol/L (5-15); CALCIUM 7.9 mg/dL (8.5-10.1); CHLORIDE 106 mmol/L (98-107); CREATININE 0.36 mg/dL (0.55-1.02)
[2019-11-08 06:11] VITALS: BP 102/58
[2019-11-08] MEDS: DOXYCYCLINE 100MG TABLET PO SCH (08:48)
[2019-11-08] MEDS: OXYcodone/APAP 5/325MG TABLET PO PRN (10:05)
[2019-11-08] MEDS: ERTAPENEM 1 GM in SODIUM CHLORIDE 0.9% 50 ML IV SCH (10:47)
[2019-11-08] MEDS ORDERED: DOXY100T PO (10:52)
[2019-11-08] MEDS ORDERED: AMOX1TAB64 PO (10:56)
[2019-11-08] MEDS ORDERED: LACT1CAP11 PO (10:57)
[2019-11-08] MEDS ORDERED: FOSFOMYCIN 3 GM PACKET PO ONE (11:00)
[2019-11-08 13:30] VITALS: BP 111/67
== END 2019-11-08 14:59 | disposition hospice, home (50) | DRG 813 ==
LOC: ED 12:08 → EDIP 12:43 → 4NW 14:00
PROVIDERS: ADMIT Hospitalist; ATTEND Internal Medicine
PROC: 0W9930Z Drainage of Right Pleural Cavity with Drainage Device, Percutaneous Approach (ICD-10-PCS; principal; 2019-11-06)
PROC: 0WP933Z Removal of Infusion Device from Right Pleural Cavity, Percutaneous Approach (ICD-10-PCS; 2019-11-06)
DX: T85.698A Other mechanical complication of other specified internal prosthetic devices, implants and grafts, initial encounter (principal); N39.0 Urinary tract infection, site not specified; K76.6 Portal hypertension; K75.9 Inflammatory liver disease, unspecified; E43 Unspecified severe protein-calorie malnutrition; Z68.37 Body mass index [BMI] 37.0-37.9, adult; F17.210 Nicotine dependence, cigarettes, uncomplicated; F20.9 Schizophrenia, unspecified; Z16.12 Extended spectrum beta lactamase (ESBL) resistance; F41.1 Generalized anxiety disorder; J44.9 Chronic obstructive pulmonary disease, unspecified; J90 Pleural effusion, not elsewhere classified; Z99.81 Dependence on supplemental oxygen; Z83.3 Family history of diabetes mellitus; Z82.5 Family history of asthma and other chronic lower respiratory diseases; Z82.49 Family history of ischemic heart disease and other diseases of the circulatory system; Z80.9 Family history of malignant neoplasm, unspecified; J98.11 Atelectasis; K70.11 Alcoholic hepatitis with ascites; K70.31 Alcoholic cirrhosis of liver with ascites; Y83.9 Surgical procedure, unspecified as the cause of abnormal reaction of the patient, or of later complication, without mention of misadventure at the time of the procedure; Y92.89 Other specified places as the place of occurrence of the external cause
CPT/HCPCS: J3490 ×2; 32552; 36415; 49422; 71045; 71260; 80048; 80053; 81001; 82040; 83735; 84100; 84145; 85025; 85610; 85730; 87040; 87077; 87086; 87184; 87186; 96372; 96374; 99156; 99157; 99285; G0378; J0696; J1170; J1335; J1644; J2250; J3010; Q9967; C1729; J2310

== ENCOUNTER 2020-05-01 19:05 | Inpatient (IN) | payer MEDICAID ==
[~2020-05-01] VITALS: Ht 165.1 cm; Wt 101.5 kg
[~2020-05-01 19:05] MED LIST changes: -FOLI-17 PO; +FOLI1TAB32 PO; +LACT1CAP11 PO; +MORP4SYR4 PO; -OXYC-302 PO; +OXYC1TAB14 PO
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
--- NOTE | 2020-05-01 19:41 | NUR ---
EKG AT BS
[2020-05-01 19:54] LABS: BASOPHILS % (AUTO) 1 % (0-1); EOSINOPHILS % (AUTO) 4 % (1-7); LYMPHOCYTES % (AUTO) 19 % (22-44); MEAN CORPUSCULAR HGB CONC 32.2 g/dL (32.4-35.8); MEAN PLATELET VOLUME 7.4 fL (7.4-10.4); MONOCYTES % (AUTO) 9 % (2-9); NEUTROPHILS % (AUTO) 68 % (42-75); PLATELET COUNT 134 x10^3/uL (130-400); RED BLOOD COUNT 3.27 x10^6/uL (3.82-5.3); RED CELL DISTRIBUTION WIDTH 19.3 % (9.6-15.2)
[2020-05-01 19:55] LABS: MD NO
[2020-05-01] MEDS ORDERED: SODIUM CHLORIDE FLUSH 10ML SYR IVF ONE (20:00)
[2020-05-01 20:05] LABS: ALANINE AMINOTRANSFERASE 29 U/L (12-78); ANION GAP 4 mmol/L (5-15); CALCIUM 7.3 mg/dL (8.5-10.1); CHLORIDE 111 mmol/L (98-107)
[2020-05-01 20:08] LABS: ALKALINE PHOSPHATASE 253 U/L (45-117); BILIRUBIN,TOTAL 0.8 mg/dL (0.2-1.0); TOTAL PROTEIN 6.5 g/dL (6.4-8.2)
[2020-05-01] MEDS ORDERED: CEFTRIAXONE PMX 1GM/50ML 50 ML IV ONE (20:30)
[2020-05-01 20:33] LABS: INTERNATIONAL NORMALIZED RATIO 1.16 (0.93-1.1); PROTHROMBIN TIME 12.4 Seconds (9.6-11.5)
[2020-05-01] MEDS ORDERED: CEFTRIAXONE PMX 1GM/50ML 50 ML ONE (20:40)
--- NOTE | 2020-05-01 21:00 | NUR ---
BP CUFF AND PULSE OX ON FLOOR IN ROOM; PULLED OFF BY PT EARLIER
--- NOTE | 2020-05-01 21:04 | NUR ---
IV ATTEMPTED X2; UNSUCCESSFUL. PT ADMITS TO BEING IV DRUG USER. WILL SEEK ASSISTANCE.
--- NOTE | 2020-05-01 21:11 | NUR ---
REPORT CALLED TO TALYA ISBELL FOR ROOM 361. HOSPITALIST AT BS
--- NOTE | 2020-05-01 21:37 | NUR ---
ONE SET OF BLD CX DRAWN FROM RT ARM
--- NOTE | 2020-05-01 21:41 | NUR ---
MARIBELHIKeely LINCOLN, INFUSING AT 100ML/HR VIA PUMP; IV SITE PATENT.
[2020-05-01 22:04] VITALS: BP 106/64
[2020-05-01] MEDS ORDERED: ALBUTEROL HFA 90 MCG/SPRAY INH PRN (22:30)
[2020-05-01] MEDS ORDERED: LABETALOL 5MG/ML, 20ML IVPush PRN (22:30)
[2020-05-01] MEDS ORDERED: POTASSIUM CHLORIDE 20 MEQ TAB.ER.PRT PO ONE (22:30)
[2020-05-01] MEDS ORDERED: OMNIPAQUE 350 MG/ML, 100ML BOTTLE ONE (23:20)
[2020-05-01] MEDS: LACTULOSE 20 GM/30 ML UDC PO SCH (23:24)
[2020-05-01] MEDS: LACTOBACILLUS CHEW TABLET PO SCH (23:25)
[2020-05-01] MEDS: FUROSEMIDE 20 MG TABLET PO SCH (23:28)
[2020-05-02] VITALS: BP 112/68
[2020-05-02] MEDS ORDERED: FOLIC ACID 1 MG TABLET PO ONE (02:00)
[2020-05-02] MEDS ORDERED: THIAMINE 200 MG in DEXTROSE 5% 50 ML IVPB ONE (02:00)
[2020-05-02] MEDS ORDERED: LORazepam 2 MG/ML, 1ML IV PRN ×5 (02:00)
[2020-05-02] MEDS ORDERED: THIAMINE 100MG TABLET PO ONE (02:30)
[2020-05-02 07:04] VITALS: BP 96/51
[2020-05-02] MEDS: LACTOBACILLUS CHEW TABLET PO SCH ×2 (08:00→16:30)
[2020-05-02] MEDS ORDERED: FLUTICASONE/VILANTEROL 200-25MCG/INH INH SCH (09:00)
[2020-05-02] MEDS ORDERED: THIAMINE 100MG TABLET PO SCH (09:00)
[2020-05-02] MEDS ORDERED: FOLIC ACID 1 MG TABLET PO SCH (09:00)
[2020-05-02] MEDS ORDERED: SPIRONOLACTONE 50 MG TABLET PO SCH (09:00)
[2020-05-02] MEDS: LACTULOSE 20 GM/30 ML UDC PO SCH ×2 (09:44→16:30)
[2020-05-02] MEDS: FUROSEMIDE 20 MG TABLET PO SCH (09:44)
[2020-05-02 12:20] LABS: HCG UR SG > 1.045 (1.003-1.030)
[2020-05-02 12:29] VITALS: BP 96/55
[2020-05-02] MEDS ORDERED: KETOROLAC 30 MG/1 ML IVPush SCH (13:00)
[2020-05-02] MEDS ORDERED: GUAI473L20 PO (13:28)
[2020-05-02] MEDS ORDERED: RIFAXIMIN 550 MG TABLET PO SCH (17:00)
[2020-05-03] MEDS ORDERED: SPIRONOLACTONE 100 MG TABLET PO SCH (09:00)
== END 2020-05-02 18:04 | disposition home or self-care (01) | DRG 862 ==
LOC: ED 21:05 → EDIP 21:44 → 3N 21:45
PROVIDERS: ADMIT Internal Medicine; ATTEND Internal Medicine
DX: T85.898A Other specified complication of other internal prosthetic devices, implants and grafts, initial encounter (principal); K70.31 Alcoholic cirrhosis of liver with ascites; F10.10 Alcohol abuse, uncomplicated; F17.200 Nicotine dependence, unspecified, uncomplicated; F20.9 Schizophrenia, unspecified; J44.9 Chronic obstructive pulmonary disease, unspecified; J81.0 Acute pulmonary edema; J81.1 Chronic pulmonary edema; K42.9 Umbilical hernia without obstruction or gangrene; K70.9 Alcoholic liver disease, unspecified; K75.9 Inflammatory liver disease, unspecified; Y83.8 Other surgical procedures as the cause of abnormal reaction of the patient, or of later complication, without mention of misadventure at the time of the procedure; Z90.49 Acquired absence of other specified parts of digestive tract; Y92.89 Other specified places as the place of occurrence of the external cause
CPT/HCPCS: 36415; 71045; 74177; 80053; 81025; 82140; 83690; 83880; 85025; 85610; 93005; G0378; J0696; J1885; Q9967; J2060

== ENCOUNTER 2020-05-10 00:04 | Inpatient (IN) | payer MEDICAID ==
[~2020-05-10] VITALS: Ht 165.1 cm; Wt 105.1 kg
[~2020-05-10 00:04] MED LIST changes: +GUAI473L20 PO
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
[2020-05-10] MEDS ORDERED: ONDANSETRON 2MG/ML, 2ML ONE (00:29)
[2020-05-10] MEDS ORDERED: MORPHINE SULFATE 4 MG/ML, 1ML ONE (00:30)
[2020-05-10] MEDS ORDERED: ONDANSETRON 2MG/ML, 2ML IVPush ONE (00:30)
[2020-05-10] MEDS ORDERED: MORPHINE SULFATE 4 MG/ML, 1ML IVPush PRN (00:30)
[2020-05-10 00:39] LABS: BASOPHILS % (AUTO) 1 % (0-1); EOSINOPHILS % (AUTO) 2 % (1-7); LYMPHOCYTES % (AUTO) 17 % (22-44); MEAN PLATELET VOLUME 7.4 fL (7.4-10.4); MONOCYTES % (AUTO) 10 % (2-9); NEUTROPHILS % (AUTO) 71 % (42-75); PLATELET COUNT 114 x10^3/uL (130-400); RED BLOOD COUNT 3.02 x10^6/uL (3.82-5.3); RED CELL DISTRIBUTION WIDTH 19.4 % (9.6-15.2)
[2020-05-10 00:40] LABS: MD NO
[2020-05-10 00:49] LABS: INTERNATIONAL NORMALIZED RATIO 1.19 (0.93-1.1); PROTHROMBIN TIME 12.7 Seconds (9.6-11.5)
[2020-05-10 00:51] LABS: ALANINE AMINOTRANSFERASE 36 U/L (12-78); ALBUMIN 1.9 g/dL (3.4-5.0); ANION GAP 5 mmol/L (5-15); CALCIUM 7.2 mg/dL (8.5-10.1); CHLORIDE 107 mmol/L (98-107); CREATININE 0.49 mg/dL (0.55-1.02)
[2020-05-10 00:54] LABS: ALKALINE PHOSPHATASE 377 U/L (45-117); BILIRUBIN,TOTAL 1.4 mg/dL (0.2-1.0); TOTAL PROTEIN 6.3 g/dL (6.4-8.2)
[2020-05-10] MEDS ORDERED: LACTULOSE 20 GM/30 ML UDC PO ONE (01:30)
--- NOTE | 2020-05-10 01:32 | NUR ---
PT RESTING ON CHRISTIE, NAD, APPEARS COMFORTABLE, STATES THAT HER PAIN IS NOW TOLERABLE, LIGHTS DIMMED FOR COMFORT, PERITONEAL FLUID WALKED TO LAB, OBTAINED WITH SYRINGE AND PLACE IN STERILE CUP. LAB INSTRUCTED RN TO TRANSFER FLUID INTO DIFFERENT TUBES AND IN LABELLING PROCESS.
[2020-05-10] MEDS ORDERED: ALBUTEROL HFA 90 MCG/SPRAY INH PRN (03:30)
[2020-05-10] MEDS ORDERED: ONDANSETRON 2MG/ML, 2ML IVPush PRN (03:30)
[2020-05-10] MEDS ORDERED: LABETALOL 5MG/ML, 20ML IVPush PRN (03:30)
--- NOTE | 2020-05-10 03:30 | NUR ---
REPORT CALLED TO MADELYN BABIN ON [employer]. PT CARE TO BE TRANSFERRED UPON ARRIVAL TO THE FLOOR.
[2020-05-10 03:53] VITALS: BP 106/64
[2020-05-10] MEDS: CEFTRIAXONE PMX 1GM/50ML 50 ML IV SCH (05:39)
[2020-05-10] MEDS: morphine SULFATE 10 MG/ML, 1ML IVPush PRN ×4 (05:40→20:21)
[2020-05-10] MEDS ORDERED: LORazepam 2 MG/ML, 1ML IVPush PRN (06:00)
[2020-05-10] MEDS: AZITHROMYCIN 500 MG in SODIUM CHLORIDE 0.9% 250 ML IV SCH (06:11)
[2020-05-10] MEDS: ALBUTEROL-IPRATROPIUM MDI INH INH SCH ×4 (07:00→20:00)
[2020-05-10 08:08] VITALS: BP 116/71
[2020-05-10] MEDS: FOLIC ACID 1 MG TABLET PO SCH (09:10)
[2020-05-10] MEDS: THIAMINE 100MG TABLET PO SCH (09:10)
[2020-05-10] MEDS: LACTULOSE 20 GM/30 ML UDC PO SCH ×3 (09:10→20:20)
[2020-05-10] MEDS: FLUTICASONE/VILANTEROL 200-25MCG/INH INH SCH (09:10)
[2020-05-10] MEDS: PANTOPRAZOLE 40 MG IV IVPush SCH (09:11)
[2020-05-10 12:12] VITALS: BP 114/68
[2020-05-10] MEDS: GUAIFENESIN/DM 200-20MG, 10ML UDC PO PRN (15:30)
[2020-05-10 18:38] VITALS: BP 106/65
[2020-05-10] MEDS: RIFAXIMIN 550 MG TABLET PO SCH (20:20)
[2020-05-10] MEDS: DIPHENHYDRAMINE 25 MG CAPSULE PO PRN (23:15)
[2020-05-11 01:34] VITALS: BP 101/64
[2020-05-11] MEDS: CEFTRIAXONE PMX 1GM/50ML 50 ML IV SCH (03:51)
[2020-05-11] MEDS: morphine SULFATE 10 MG/ML, 1ML IVPush PRN (03:52)
[2020-05-11] MEDS: AZITHROMYCIN 500 MG in SODIUM CHLORIDE 0.9% 250 ML IV SCH (04:37)
[2020-05-11 05:43] LABS: BASOPHILS % (AUTO) 1 % (0-1); EOSINOPHILS % (AUTO) 4 % (1-7); LYMPHOCYTES % (AUTO) 16 % (22-44); MEAN CORPUSCULAR HEMOGLOBIN 26.1 pg (27.0-34.8); MEAN CORPUSCULAR HGB CONC 31.8 g/dL (32.4-35.8); MEAN PLATELET VOLUME 7.7 fL (7.4-10.4); MONOCYTES % (AUTO) 11 % (2-9); NEUTROPHILS % (AUTO) 69 % (42-75); PLATELET COUNT 107 x10^3/uL (130-400); RED BLOOD COUNT 2.94 x10^6/uL (3.82-5.3); RED CELL DISTRIBUTION WIDTH 19.9 % (9.6-15.2)
[2020-05-11 05:50] LABS: MD NO
[2020-05-11 05:54] LABS: ALBUMIN 1.8 g/dL (3.4-5.0); ANION GAP 5 mmol/L (5-15); CHLORIDE 105 mmol/L (98-107)
[2020-05-11 05:58] LABS: ALANINE AMINOTRANSFERASE 30 U/L (12-78); ALKALINE PHOSPHATASE 300 U/L (45-117); BILIRUBIN,TOTAL 1.4 mg/dL (0.2-1.0); CREATININE 0.45 mg/dL (0.55-1.02); TOTAL PROTEIN 5.9 g/dL (6.4-8.2)
[2020-05-11 06:23] VITALS: BP 117/75
[2020-05-11] MEDS: ALBUTEROL-IPRATROPIUM MDI INH INH SCH ×4 (06:29→20:00)
[2020-05-11] MEDS: RIFAXIMIN 550 MG TABLET PO SCH ×2 (07:43→20:32)
[2020-05-11] MEDS: PANTOPRAZOLE 40 MG IV IVPush SCH (07:43)
[2020-05-11] MEDS: FOLIC ACID 1 MG TABLET PO SCH (07:44)
[2020-05-11] MEDS: THIAMINE 100MG TABLET PO SCH (07:44)
[2020-05-11] MEDS: LACTULOSE 20 GM/30 ML UDC PO SCH ×3 (07:44→20:32)
[2020-05-11] MEDS: FLUTICASONE/VILANTEROL 200-25MCG/INH INH SCH (08:27)
[2020-05-11] MEDS ORDERED: methylPREDNISolone SOD SUCC 40 MG/ML IVPush SCH (10:30)
[2020-05-11] MEDS: HYDROcodone/APAP 10/325 MG TABLET PO PRN ×3 (10:50→23:39)
[2020-05-11] MEDS: GUAIFENESIN/DM 200-20MG, 10ML UDC PO PRN ×2 (10:51→20:33)
[2020-05-11 15:00] VITALS: BP 112/71
[2020-05-11] MEDS: metroNIDAZOLE 500 MG TABLET PO SCH ×2 (16:15→23:39)
[2020-05-11] MEDS: FUROSEMIDE 20 MG/2 ML IV SCH (17:03)
[2020-05-11 18:40] VITALS: BP 117/69
[2020-05-11] MEDS: SIMVASTATIN 40 MG TABLET PO SCH (20:32)
[2020-05-11] MEDS: DIPHENHYDRAMINE 25 MG CAPSULE PO PRN (20:32)
[2020-05-12 01:13] VITALS: BP 110/64
[2020-05-12] MEDS: CEFTRIAXONE PMX 1GM/50ML 50 ML IV SCH (04:14)
[2020-05-12 04:48] LABS: BASOPHILS % (AUTO) 0 % (0-1); EOSINOPHILS % (AUTO) 0 % (1-7); LYMPHOCYTES % (AUTO) 7 % (22-44); MEAN CORPUSCULAR HEMOGLOBIN 26.2 pg (27.0-34.8); MEAN CORPUSCULAR HGB CONC 32.1 g/dL (32.4-35.8); MEAN PLATELET VOLUME 7.7 fL (7.4-10.4); MONOCYTES % (AUTO) 7 % (2-9); NEUTROPHILS % (AUTO) 86 % (42-75); PLATELET COUNT 117 x10^3/uL (130-400); RED BLOOD COUNT 2.94 x10^6/uL (3.82-5.3); RED CELL DISTRIBUTION WIDTH 19.9 % (9.6-15.2)
[2020-05-12 04:52] LABS: MD NO
[2020-05-12] MEDS: AZITHROMYCIN 500 MG in SODIUM CHLORIDE 0.9% 250 ML IV SCH (04:53)
[2020-05-12 04:57] LABS: ALBUMIN 1.9 g/dL (3.4-5.0); ANION GAP 5 mmol/L (5-15); CHLORIDE 106 mmol/L (98-107)
[2020-05-12 05:01] LABS: ALANINE AMINOTRANSFERASE 26 U/L (12-78); ALKALINE PHOSPHATASE 297 U/L (45-117); CREATININE 0.45 mg/dL (0.55-1.02); TOTAL PROTEIN 6.7 g/dL (6.4-8.2)
[2020-05-12] MEDS: HYDROcodone/APAP 10/325 MG TABLET PO PRN ×3 (05:45→18:29)
[2020-05-12 06:47] VITALS: BP 105/65
[2020-05-12] MEDS: ALBUTEROL-IPRATROPIUM MDI INH INH SCH ×4 (07:49→20:00)
[2020-05-12] MEDS: FLUTICASONE/VILANTEROL 200-25MCG/INH INH SCH (07:50)
[2020-05-12] MEDS: LACTULOSE 20 GM/30 ML UDC PO SCH ×3 (08:18→21:44)
[2020-05-12] MEDS: RIFAXIMIN 550 MG TABLET PO SCH ×2 (08:19→21:44)
[2020-05-12] MEDS: FUROSEMIDE 20 MG/2 ML IV SCH ×2 (08:19→17:13)
[2020-05-12] MEDS: FOLIC ACID 1 MG TABLET PO SCH (08:19)
[2020-05-12] MEDS: SPIRONOLACTONE 25 MG TABLET PO SCH (08:19)
[2020-05-12] MEDS: PANTOPRAZOLE 40 MG IV IVPush SCH (08:19)
[2020-05-12] MEDS: metroNIDAZOLE 500 MG TABLET PO SCH ×2 (08:19→14:58)
[2020-05-12] MEDS: morphine SULFATE 10 MG/ML, 1ML IVPush PRN ×2 (08:19→22:23)
[2020-05-12] MEDS: THIAMINE 100MG TABLET PO SCH (08:19)
[2020-05-12] MEDS ORDERED: ALBUMIN HUMAN 25% 100 ML IV ONE (12:00)
[2020-05-12 12:26] VITALS: BP 103/56
[2020-05-12] MEDS ORDERED: PHARMACOKINETIC MONITORING MC PRN (14:00)
[2020-05-12] MEDS ORDERED: PHARMACOKINETIC CONSULTATION MC ONE (14:00)
[2020-05-12] MEDS ORDERED: VANCOMYCIN 2,300 MG in SODIUM CHLORIDE 0.9% 500 ML IV ONE (14:00)
[2020-05-12] MEDS ORDERED: VANCOMYCIN PER PHARMACY MC PRN (14:00)
[2020-05-12 18:40] VITALS: BP 96/58
[2020-05-12 21:43] VITALS: BP 107/70
[2020-05-12] MEDS: SIMVASTATIN 40 MG TABLET PO SCH (21:44)
[2020-05-12] MEDS: DIPHENHYDRAMINE 25 MG CAPSULE PO PRN (21:44)
[2020-05-13] VITALS (8 sets, daily range): BP systolic 93–117; BP diastolic 56–76
[2020-05-13] MEDS: metroNIDAZOLE 500 MG TABLET PO SCH ×4 (01:10→23:45)
[2020-05-13] MEDS: VANCOMYCIN 1,800 MG in SODIUM CHLORIDE 0.9% 250 ML IV SCH ×2 (03:41→16:11)
[2020-05-13] MEDS: GUAIFENESIN/DM 200-20MG, 10ML UDC PO PRN ×2 (04:08→21:02)
[2020-05-13] MEDS: HYDROcodone/APAP 10/325 MG TABLET PO PRN (04:08)
[2020-05-13] MEDS: CEFTRIAXONE PMX 1GM/50ML 50 ML IV SCH (05:29)
[2020-05-13 06:13] LABS: BASOPHILS % (AUTO) 1 % (0-1); EOSINOPHILS % (AUTO) 2 % (1-7); LYMPHOCYTES % (AUTO) 5 % (22-44); MEAN CORPUSCULAR HGB CONC 31.6 g/dL (32.4-35.8); MEAN PLATELET VOLUME 7.5 fL (7.4-10.4); MONOCYTES % (AUTO) 7 % (2-9); NEUTROPHILS % (AUTO) 85 % (42-75); PLATELET COUNT 100 x10^3/uL (130-400); RED BLOOD COUNT 2.89 x10^6/uL (3.82-5.3)
[2020-05-13 06:14] LABS: MD NO
[2020-05-13 06:25] LABS: ALANINE AMINOTRANSFERASE 22 U/L (12-78); ALBUMIN 1.8 g/dL (3.4-5.0); CALCIUM 7.2 mg/dL (8.5-10.1); CHLORIDE 107 mmol/L (98-107); CREATININE 0.45 mg/dL (0.55-1.02)
[2020-05-13 06:27] LABS: ALKALINE PHOSPHATASE 239 U/L (45-117); BILIRUBIN,TOTAL 0.8 mg/dL (0.2-1.0); TOTAL PROTEIN 5.9 g/dL (6.4-8.2)
[2020-05-13 06:33] LABS: ANION GAP 5 mmol/L (5-15)
[2020-05-13] MEDS: PANTOPRAZOLE 40 MG IV IVPush SCH (06:34)
[2020-05-13] MEDS: FUROSEMIDE 20 MG/2 ML IV SCH ×2 (06:38→17:00)
[2020-05-13] MEDS: FLUTICASONE/VILANTEROL 200-25MCG/INH INH SCH (07:45)
[2020-05-13] MEDS: ALBUTEROL-IPRATROPIUM MDI INH INH SCH ×4 (07:45→20:00)
[2020-05-13] MEDS: LACTULOSE 20 GM/30 ML UDC PO SCH ×3 (09:16→21:01)
[2020-05-13] MEDS: FOLIC ACID 1 MG TABLET PO SCH (09:16)
[2020-05-13] MEDS: RIFAXIMIN 550 MG TABLET PO SCH ×2 (09:16→21:02)
[2020-05-13] MEDS: SPIRONOLACTONE 25 MG TABLET PO SCH (09:16)
[2020-05-13] MEDS: THIAMINE 100MG TABLET PO SCH (09:16)
[2020-05-13] MEDS: morphine SULFATE 10 MG/ML, 1ML IVPush PRN ×4 (09:39→21:17)
[2020-05-13] MEDS ORDERED: LIDOCAINE 1%, 10ML ONE (14:26)
[2020-05-13] MEDS ORDERED: FENTANYL PF 100 MCG/2ML ONE (14:31)
[2020-05-13] MEDS ORDERED: NALOXONE 1 MG/ML, 2ML ONE (14:31)
[2020-05-13] MEDS: DIPHENHYDRAMINE 25 MG CAPSULE PO PRN (18:03)
[2020-05-13] MEDS: SIMVASTATIN 40 MG TABLET PO SCH (21:02)
[2020-05-13] MEDS ORDERED: LIDODERM 5% PATCH TD SCH (21:30)
[2020-05-14 00:46] VITALS: BP 103/62
[2020-05-14] MEDS ORDERED: HYDROcodone/APAP 10/325 MG TABLET PO ONE (01:00)
[2020-05-14 01:19] VITALS: BP 97/60
[2020-05-14 02:59] VITALS: BP 103/65
[2020-05-14] MEDS: VANCOMYCIN 1,800 MG in SODIUM CHLORIDE 0.9% 250 ML IV SCH (03:12)
[2020-05-14] MEDS ORDERED: PANTOPRAZOLE 40MG TABLET PO SCH (06:00)
[2020-05-14] MEDS: CEFTRIAXONE PMX 1GM/50ML 50 ML IV SCH (06:38)
[2020-05-14 06:45] VITALS: BP 91/58
[2020-05-14] MEDS: RIFAXIMIN 550 MG TABLET PO SCH (08:23)
[2020-05-14] MEDS: metroNIDAZOLE 500 MG TABLET PO SCH (08:23)
[2020-05-14] MEDS: FOLIC ACID 1 MG TABLET PO SCH (08:23)
[2020-05-14] MEDS: SPIRONOLACTONE 25 MG TABLET PO SCH (08:23)
[2020-05-14] MEDS: THIAMINE 100MG TABLET PO SCH (08:24)
[2020-05-14] MEDS: LACTULOSE 20 GM/30 ML UDC PO SCH (08:24)
[2020-05-14] MEDS: FUROSEMIDE 20 MG/2 ML IV SCH (08:25)
[2020-05-14] MEDS: DIPHENHYDRAMINE 25 MG CAPSULE PO PRN (08:46)
[2020-05-14] MEDS: morphine SULFATE 10 MG/ML, 1ML IVPush PRN (08:47)
[2020-05-14] MEDS: ALBUTEROL-IPRATROPIUM MDI INH INH SCH ×2 (09:00→10:45)
[2020-05-14] MEDS ORDERED: LIDODERM REMOVE PATCH NOTE XX SCH (09:30)
[2020-05-14] MEDS: FLUTICASONE/VILANTEROL 200-25MCG/INH INH SCH (10:45)
[2020-05-14] MEDS ORDERED: RIFA550T4 PO (11:12)
[2020-05-14 11:53] VITALS: BP 105/63
== END 2020-05-14 13:08 | disposition home or self-care (01) | DRG 280 ==
LOC: ED 01:48 → EDIP 03:01 → 4WST 03:50
PROVIDERS: ADMIT Internal Medicine; ATTEND Family Medicine
PROC: 0WPGX3Z Removal of Infusion Device from Peritoneal Cavity, External Approach (ICD-10-PCS; principal; 2020-05-13)
DX: K70.31 Alcoholic cirrhosis of liver with ascites (principal); F10.10 Alcohol abuse, uncomplicated; F19.90 Other psychoactive substance use, unspecified, uncomplicated; Z20.822 Contact with and (suspected) exposure to COVID-19; E72.20 Disorder of urea cycle metabolism, unspecified; K72.90 Hepatic failure, unspecified without coma; J44.1 Chronic obstructive pulmonary disease with (acute) exacerbation; F39 Unspecified mood [affective] disorder; F17.200 Nicotine dependence, unspecified, uncomplicated; Z82.49 Family history of ischemic heart disease and other diseases of the circulatory system; Z79.899 Other long term (current) drug therapy; Z83.3 Family history of diabetes mellitus; Z80.3 Family history of malignant neoplasm of breast; Z82.5 Family history of asthma and other chronic lower respiratory diseases
CPT/HCPCS: 36415; 49422; 71045; 76700; 80053; 82042; 82140; 82962; 83615; 83690; 83735; 84100; 84145; 85025; 85610; 87040; 87070; 87075; 87077; 87102; 87186; 87205; 89051; 94640; 96374; 96375; G0378; J0456; J0696; J2405; J3010; J3370; P9047; C9113; J1940; J2270; J2310; J2920; J7040; J7050; Q0163; U0003